=== PATIENT | male | born 1960 | race Hispanic/Latino ===

== ENCOUNTER 2017-08-04 08:19 | Inpatient (IN) | payer MEDICARE ==
[~2017-08-04] VITALS: Ht 162.6 cm; Wt 75.3 kg
[~2017-08-04 08:19] MED LIST: ALBU50IV5 IV; ASPI-1197 PO; ATOR40TA69 PO; BISA5TAB12 PO; CALC667T5 PO; CEPH500C2 PO; CINA30 PO; ENOX30DI5 SQ; EPOE10I IVP; FAMO20VI5 IV; FOLI1CAP24 PO; LACT10SO9 PO; METO25TA6 PO; MIDO5TAB PO; MIRALAX PO; ONDA4VIA30 IV; SIME80TA12 PO; [UNRECOGNIZED DRUG - CODE] IV
[2017-08-04 10:28] VITALS: BP 143/75
[2017-08-04] MEDS ORDERED: BISACODYL 5 MG TABLET.DR PO PRN (11:30)
[2017-08-04] MEDS ORDERED: ONDANSETRON HCL 4 MG/2 ML VIAL IVP PRN (11:30)
[2017-08-04] MEDS ORDERED: NITROGLYCERIN 0.4 MG SL TAB SL PRN (11:30)
[2017-08-04] MEDS ORDERED: POLYETHYLENE GLYCOL 3350 17 GM POWD.PACK PO PRN (11:30)
[2017-08-04] MEDS: MUPIROCIN OINTMENT 22 GM TUBE TP SCH ×2 (11:30→17:23)
[2017-08-04] MEDS: LACTULOSE 20 GM/30 ML UDCUP PO SCH ×2 (11:30→19:16)
[2017-08-04] MEDS ORDERED: DEXTROSE 50%-WATER 50 ML DISP.SYRIN IV PRN (11:30)
[2017-08-04] MEDS: INSULIN HUMULIN R 100 UNIT/ML 3ML SQ SCH ×3 (11:30→20:42)
[2017-08-04] MEDS ORDERED: GLUCAGON 1MG KIT 1 MG ML IM PRN (11:30)
[2017-08-04] MEDS: CEPHALEXIN 500 MG CAPSULE PO SCH ×2 (11:30→17:00)
[2017-08-04] MEDS ORDERED: SODIUM CHLORIDE 0.9% 1000ML 1,000 ML IV PRN (11:30)
[2017-08-04] MEDS ORDERED: ZOLPIDEM TARTRATE 5 MG TAB PO PRN (11:30)
[2017-08-04] MEDS ORDERED: ALBUMIN (HUMAN) 25% 50 ML IV PRN (11:30)
[2017-08-04] MEDS ORDERED: BALSAM PERU/CASTOR OIL 60 GM TUBE TP PRN (11:30)
[2017-08-04] MEDS ORDERED: GUAIFENESIN-CODEINE 5 ML SYRUP PO PRN (11:30)
[2017-08-04] MEDS ORDERED: PHARMACY COMMUNICATION MISC SCH ×2 (11:30)
[2017-08-04] MEDS: CALCIUM ACETATE 667 MG CAPSULE PO SCH ×2 (12:00→17:22)
[2017-08-04] MEDS ORDERED: IOPAMIDOL-370 100 ML VIAL IV ONE (12:46)
[2017-08-04] MEDS: SIMETHICONE 80 MG TAB.CHEW PO SCH ×3 (13:00→20:36)
[2017-08-04] MEDS ORDERED: CEFEPIME 1GM+NS 50ML 50 ML IV SCH (13:15)
[2017-08-04] MEDS ORDERED: VANCOMYCIN PROTOCOL PER PHARMACY IV SCH (13:15)
[2017-08-04] MEDS ORDERED: ISOVUE-370 50ML VIAL IV ONE (13:28)
[2017-08-04] MEDS: CEFEPIME HCL 1 GM VIAL IVP SCH ×2 (13:30→15:18)
[2017-08-04] MEDS ORDERED: MIDODRINE HCL 5 MG TABLET PO SCH (14:00)
[2017-08-04 15:46] LABS: CREATININE 6.9 mg/dL (0.5-1.5); POTASSIUM 5.7 mmol/L (3.5-5.1)
[2017-08-04 16:21] VITALS: BP 151/77
[2017-08-04] MEDS: ALBUTEROL SULFATE 0.083% 2.5 MG/3 ML INH IH SCH ×2 (16:27→19:38)
[2017-08-04] MEDS: ACETYLCYSTEINE 20% 200MG/ML 4ML VIAL IH SCH ×2 (16:27→19:39)
[2017-08-04] MEDS ORDERED: SODIUM POLYSTYRENE SULFONATE 15 GM/60 ML ML PO SCH (16:45)
[2017-08-04] MEDS ORDERED: DiphenhydrAMINE HCL 25 MG/10 ML ELIXIR UDCUP PO PRN (17:00)
[2017-08-04] MEDS: VANCOMYCIN 1GM+NS 250ML 250 ML IV SCH (17:25)
[2017-08-04 18:05] LABS: HEMATOCRIT 31.2 % (42-54); MEAN CORPUSCULAR HEMOGLOBIN 31.9 pg (27.0-33.0); MEAN CORPUSCULAR HGB CONC 31.3 g/dL (32.0-36.0); MEAN CORPUSCULAR VOLUME 101.7 fL (79-99); NUCLEATED RED BLOOD CELLS 0.1 % (0.0-0.19); PLATELET COUNT (AUTO) 202 K/uL (130-400); RED BLOOD CELL COUNT(AUTO) 3.07 MIL/uL (4.50-6.20); RED CELL DISTRIBUTION WIDTH 20.4 % (11.0-15.5); WHITE BLOOD COUNT (AUTO) 6.3 K/uL (4.8-10.8)
[2017-08-04] MEDS ORDERED: INSULIN HUMULIN R 100 UNIT/ML 3ML SQ ONE (20:27)
[2017-08-04 20:32] VITALS: BP 132/61
[2017-08-04] MEDS: ATORVASTATIN CALCIUM 40 MG TABLET PO SCH (20:35)
[2017-08-04] MEDS: FAMOTIDINE/PF 20 MG/2 ML VIAL IV SCH (20:35)
[2017-08-04] MEDS: RIFAXIMIN 550 MG TABLET PO SCH (20:36)
[2017-08-04] MEDS: CINACALCET HCL 30 MG TAB PO SCH (20:36)
[2017-08-04] MEDS ORDERED: ACETAMINOPHEN 325 MG TAB PO PRN (21:00)
[2017-08-04] MEDS ORDERED: METOPROLOL TARTRATE 25 MG TAB PO SCH (21:00)
[2017-08-04 23:41] VITALS: BP 103/61
[2017-08-05] MEDS: ENOXAPARIN SODIUM 40 MG/0.4 ML SYRINGE SQ SCH ×2 (00:20→20:19)
[2017-08-05] MEDS: MUPIROCIN OINTMENT 22 GM TUBE TP SCH ×3 (00:26→23:51)
[2017-08-05] MEDS: ACETYLCYSTEINE 20% 200MG/ML 4ML VIAL IH SCH ×5 (00:31→23:07)
[2017-08-05] MEDS: ALBUTEROL SULFATE 0.083% 2.5 MG/3 ML INH IH SCH ×5 (00:31→23:06)
[2017-08-05] MEDS: LACTULOSE 20 GM/30 ML UDCUP PO SCH ×6 (03:17→20:17)
[2017-08-05 03:31] VITALS: BP 126/71
[2017-08-05 03:50] LABS: HEMATOCRIT 29.5 % (42-54); MEAN CORPUSCULAR HEMOGLOBIN 31.3 pg (27.0-33.0); MEAN CORPUSCULAR HGB CONC 31.8 g/dL (32.0-36.0); MEAN CORPUSCULAR VOLUME 98.6 fL (79-99); PLATELET COUNT (AUTO) 203 K/uL (130-400); RED BLOOD CELL COUNT(AUTO) 2.99 MIL/uL (4.50-6.20); RED CELL DISTRIBUTION WIDTH 19.8 % (11.0-15.5); WHITE BLOOD COUNT (AUTO) 6.8 K/uL (4.8-10.8)
[2017-08-05 03:54] LABS: ALBUMIN 2.3 g/dL (3.5-5.0); BILIRUBIN,TOTAL 0.6 mg/dL (0.2-1.0); CREATININE 7.4 mg/dL (0.5-1.5); PHOSPHORUS 4.1 mg/dL (2.5-4.9); POTASSIUM 5.1 mmol/L (3.5-5.1); TOTAL PROTEIN, SERUM 7.8 g/dL (6.0-8.3)
[2017-08-05] MEDS: INSULIN HUMULIN R 100 UNIT/ML 3ML SQ SCH ×4 (05:33→20:54)
[2017-08-05 07:23] VITALS: BP 144/46
[2017-08-05] MEDS ORDERED: ISOVUE-370 50ML VIAL IV ONE (07:31)
[2017-08-05] MEDS: CALCIUM ACETATE 667 MG CAPSULE PO SCH ×4 (08:00→17:28)
[2017-08-05] MEDS: FOLIC ACID/VITAMIN B COMP W-C 1 MG CAPSULE PO SCH ×2 (09:00→09:17)
[2017-08-05] MEDS: ASPIRIN 81MG TAB.CHEW PO SCH ×2 (09:00→09:17)
[2017-08-05] MEDS: SIMETHICONE 80 MG TAB.CHEW PO SCH ×5 (09:17→20:18)
[2017-08-05] MEDS: RIFAXIMIN 550 MG TABLET PO SCH ×2 (09:17→20:18)
[2017-08-05 11:20] VITALS: BP 121/45
[2017-08-05] MEDS: CEFEPIME HCL 1 GM VIAL IVP SCH (14:31)
[2017-08-05 16:13] VITALS: BP 104/58
[2017-08-05 19:36] VITALS: BP_SYST 131; BP_SYST 144; BP_DIAS 83; BP_DIAS 92
[2017-08-05] MEDS: CINACALCET HCL 30 MG TAB PO SCH (20:18)
[2017-08-05] MEDS: ATORVASTATIN CALCIUM 40 MG TABLET PO SCH (20:18)
[2017-08-05] MEDS: FAMOTIDINE/PF 20 MG/2 ML VIAL IV SCH (20:18)
[2017-08-05 23:55] VITALS: BP 114/55
[2017-08-06] MEDS: LACTULOSE 20 GM/30 ML UDCUP PO SCH ×4 (03:30→21:02)
[2017-08-06 03:50] VITALS: BP 117/50
[2017-08-06 04:02] LABS: HEMATOCRIT 26.7 % (42-54); MEAN CORPUSCULAR HEMOGLOBIN 32.8 pg (27.0-33.0); MEAN CORPUSCULAR HGB CONC 33.3 g/dL (32.0-36.0); MEAN CORPUSCULAR VOLUME 98.7 fL (79-99); NUCLEATED RED BLOOD CELLS 0.1 % (0.0-0.19); PLATELET COUNT (AUTO) 167 K/uL (130-400); RED BLOOD CELL COUNT(AUTO) 2.71 MIL/uL (4.50-6.20); RED CELL DISTRIBUTION WIDTH 20.2 % (11.0-15.5); WHITE BLOOD COUNT (AUTO) 5.7 K/uL (4.8-10.8)
[2017-08-06 04:16] LABS: CREATININE 5.8 mg/dL (0.5-1.5); POTASSIUM 4.6 mmol/L (3.5-5.1)
[2017-08-06] MEDS: INSULIN HUMULIN R 100 UNIT/ML 3ML SQ SCH ×4 (05:29→21:00)
[2017-08-06] MEDS: ACETYLCYSTEINE 20% 200MG/ML 4ML VIAL IH SCH ×3 (07:28→18:00)
[2017-08-06] MEDS: ALBUTEROL SULFATE 0.083% 2.5 MG/3 ML INH IH SCH ×4 (07:29→23:45)
[2017-08-06 07:33] VITALS: BP 125/46
[2017-08-06] MEDS: SIMETHICONE 80 MG TAB.CHEW PO SCH ×4 (08:21→21:05)
[2017-08-06] MEDS: CALCIUM ACETATE 667 MG CAPSULE PO SCH ×3 (08:21→17:16)
[2017-08-06] MEDS: FOLIC ACID/VITAMIN B COMP W-C 1 MG CAPSULE PO SCH (08:21)
[2017-08-06] MEDS: ASPIRIN 81MG TAB.CHEW PO SCH (08:21)
[2017-08-06] MEDS: RIFAXIMIN 550 MG TABLET PO SCH ×2 (08:21→21:03)
[2017-08-06 10:21] LABS: INR 1.15 (0.85-1.15); PARTIAL THROMBOPLASTIN TIME 31.7 SEC (26.3-35.5)
[2017-08-06 11:09] VITALS: BP 135/88
[2017-08-06] MEDS: CEFEPIME HCL 1 GM VIAL IVP SCH (13:03)
[2017-08-06] MEDS: MUPIROCIN OINTMENT 22 GM TUBE TP SCH ×2 (13:05→23:00)
[2017-08-06 14:41] LABS: TOTAL PROTEIN, SERUM 7.5 g/dL (6.0-8.3)
[2017-08-06 16:00] VITALS: BP 144/65
[2017-08-06] MEDS: VANCOMYCIN 1GM+NS 250ML 250 ML IV SCH (17:16)
[2017-08-06 19:11] VITALS: BP 123/69
[2017-08-06 19:56] LABS: APPEARANCE BODY FLUID CLOUDY (CLEAR); COLOR,BODY FLUID YELLOW (LT YELLOW); SPECIMENTYPE,BODY FLUID PLEURAL; TOTAL VOLUME,BODY FLUID 1100 mL
[2017-08-06 19:57] LABS: BODY FLUID RBC 2600 /cu. mm.; BODY FLUID WBC 56 /cu. mm.
[2017-08-06 20:23] LABS: BF LYMPHOCYTE 29 %
[2017-08-06] MEDS: ENOXAPARIN SODIUM 40 MG/0.4 ML SYRINGE SQ SCH (21:03)
[2017-08-06] MEDS: FAMOTIDINE/PF 20 MG/2 ML VIAL IV SCH (21:03)
[2017-08-06] MEDS: ATORVASTATIN CALCIUM 40 MG TABLET PO SCH (21:03)
[2017-08-06] MEDS: CINACALCET HCL 30 MG TAB PO SCH (21:04)
[2017-08-06] MEDS: TRAZODONE HCL 50 MG TAB PO PRN (21:21)
[2017-08-06 23:20] VITALS: BP 117/69
[2017-08-07 03:04] VITALS: BP 127/58
[2017-08-07] MEDS: LACTULOSE 20 GM/30 ML UDCUP PO SCH ×4 (03:30→19:55)
[2017-08-07 04:21] LABS: CREATININE 7.1 mg/dL (0.5-1.5)
[2017-08-07 04:30] LABS: HEMATOCRIT 25.7 % (42-54); MEAN CORPUSCULAR HEMOGLOBIN 31.3 pg (27.0-33.0); MEAN CORPUSCULAR HGB CONC 31.6 g/dL (32.0-36.0); PLATELET COUNT (AUTO) 152 K/uL (130-400); RED CELL DISTRIBUTION WIDTH 20.1 % (11.0-15.5); WHITE BLOOD COUNT (AUTO) 5.4 K/uL (4.8-10.8)
[2017-08-07 05:30] LABS: BAND NEUTROPHILS % (MANUAL) 7 % (0-2); BASOPHILS % (MANUAL) 3 % (0-2); EOSINOPHILS % (MANUAL) 1 % (1-6); LYMPHOCYTES % (MANUAL) 12 % (22-44); MAN.DIFF COMMENT-IMPRESSION MANUAL DIFFERENTIAL; MONOCYTES % (MANUAL) 9 % (2-9); PLATELET MORPHOLOGY COMMENT ADEQUATE; SEGMENTED NEUTROPHILS % 68 % (40-70)
[2017-08-07] MEDS: ACETYLCYSTEINE 20% 200MG/ML 4ML VIAL IH SCH ×5 (06:00→23:22)
[2017-08-07] MEDS: INSULIN HUMULIN R 100 UNIT/ML 3ML SQ SCH ×4 (06:01→21:10)
[2017-08-07] MEDS: ALBUTEROL SULFATE 0.083% 2.5 MG/3 ML INH IH SCH ×4 (06:05→23:21)
[2017-08-07 07:23] VITALS: BP 118/42
[2017-08-07] MEDS: CALCIUM ACETATE 667 MG CAPSULE PO SCH ×3 (08:02→17:01)
[2017-08-07] MEDS: RIFAXIMIN 550 MG TABLET PO SCH ×2 (08:02→20:56)
[2017-08-07] MEDS: FOLIC ACID/VITAMIN B COMP W-C 1 MG CAPSULE PO SCH (08:02)
[2017-08-07] MEDS: ASPIRIN 81MG TAB.CHEW PO SCH (08:02)
[2017-08-07] MEDS: ACETAMINOPHEN 325 MG TAB PO PRN ×2 (08:03→22:36)
[2017-08-07] MEDS: SIMETHICONE 80 MG TAB.CHEW PO SCH ×4 (08:06→21:09)
[2017-08-07] MEDS ORDERED: TRAMADOL HCL 50 MG TABLET PO PRN (10:00)
[2017-08-07 11:10] VITALS: BP 122/45
[2017-08-07] MEDS: MUPIROCIN OINTMENT 22 GM TUBE TP SCH ×2 (11:30→23:03)
[2017-08-07] MEDS: CEFEPIME HCL 1 GM VIAL IVP SCH (13:25)
[2017-08-07 16:20] VITALS: BP 97/83
[2017-08-07 19:11] VITALS: BP 150/60
[2017-08-07] MEDS: FAMOTIDINE/PF 20 MG/2 ML VIAL IV SCH (20:55)
[2017-08-07] MEDS: CINACALCET HCL 30 MG TAB PO SCH (20:56)
[2017-08-07] MEDS: ATORVASTATIN CALCIUM 40 MG TABLET PO SCH (20:56)
[2017-08-07] MEDS: ENOXAPARIN SODIUM 30 MG/0.3 ML SQ SCH (20:59)
[2017-08-07] MEDS: TRAZODONE HCL 50 MG TAB PO PRN (22:36)
[2017-08-07] MEDS ORDERED: ACETYLCYSTEINE 20% 200MG/ML 4ML VIAL ONE (23:03)
[2017-08-07 23:08] VITALS: BP 109/49
[2017-08-08 03:06] VITALS: BP 129/49
[2017-08-08] MEDS: LACTULOSE 20 GM/30 ML UDCUP PO SCH ×4 (03:30→19:30)
[2017-08-08 04:13] LABS: HEMATOCRIT 27.3 % (42-54); MEAN CORPUSCULAR HEMOGLOBIN 32.2 pg (27.0-33.0); MEAN CORPUSCULAR HGB CONC 32.8 g/dL (32.0-36.0); MEAN CORPUSCULAR VOLUME 98.3 fL (79-99); NUCLEATED RED BLOOD CELLS 0.1 % (0.0-0.19); PLATELET COUNT (AUTO) 151 K/uL (130-400); RED BLOOD CELL COUNT(AUTO) 2.78 MIL/uL (4.50-6.20); WHITE BLOOD COUNT (AUTO) 5.6 K/uL (4.8-10.8)
[2017-08-08 04:16] LABS: POTASSIUM 5.5 mmol/L (3.5-5.1)
[2017-08-08 04:42] LABS: CREATININE 8.3 mg/dL (0.5-1.5)
[2017-08-08] MEDS: INSULIN HUMULIN R 100 UNIT/ML 3ML SQ SCH ×4 (05:56→21:06)
[2017-08-08] MEDS: ALBUTEROL SULFATE 0.083% 2.5 MG/3 ML INH IH SCH ×3 (06:01→18:50)
[2017-08-08] MEDS: ACETYLCYSTEINE 20% 200MG/ML 4ML VIAL IH SCH ×2 (06:01→18:49)
[2017-08-08 07:00] VITALS: BP 144/50
[2017-08-08 11:00] VITALS: BP 116/71
[2017-08-08] MEDS: MUPIROCIN OINTMENT 22 GM TUBE TP SCH ×2 (11:30→23:30)
[2017-08-08] MEDS: CALCIUM ACETATE 667 MG CAPSULE PO SCH ×3 (12:00→17:57)
[2017-08-08] MEDS: SIMETHICONE 80 MG TAB.CHEW PO SCH ×4 (13:00→20:56)
[2017-08-08] MEDS: FOLIC ACID/VITAMIN B COMP W-C 1 MG CAPSULE PO SCH (13:08)
[2017-08-08] MEDS: RIFAXIMIN 550 MG TABLET PO SCH ×2 (13:12→20:56)
[2017-08-08] MEDS: ASPIRIN 81MG TAB.CHEW PO SCH (13:12)
[2017-08-08] MEDS: CEFEPIME HCL 1 GM VIAL IVP SCH (13:14)
[2017-08-08 16:00] VITALS: BP 131/97
[2017-08-08] MEDS ORDERED: SODIUM POLYSTYRENE SULFONATE 15 GM/60 ML ML PO SCH (16:30)
[2017-08-08] MEDS: VANCOMYCIN 1GM+NS 250ML 250 ML IV SCH (17:00)
[2017-08-08 19:28] VITALS: BP_SYST 129; BP_SYST 141; BP_DIAS 69; BP_DIAS 76
[2017-08-08] MEDS: FAMOTIDINE/PF 20 MG/2 ML VIAL IV SCH (20:55)
[2017-08-08] MEDS: ATORVASTATIN CALCIUM 40 MG TABLET PO SCH (20:56)
[2017-08-08] MEDS: ENOXAPARIN SODIUM 30 MG/0.3 ML SQ SCH (20:56)
[2017-08-08] MEDS: CINACALCET HCL 30 MG TAB PO SCH (20:57)
[2017-08-08 23:20] VITALS: BP 146/58
[2017-08-09] MEDS: ALBUTEROL SULFATE 0.083% 2.5 MG/3 ML INH IH SCH ×3 (00:59→10:57)
[2017-08-09] MEDS: ACETYLCYSTEINE 20% 200MG/ML 4ML VIAL IH SCH ×3 (01:00→10:57)
[2017-08-09] MEDS: LACTULOSE 20 GM/30 ML UDCUP PO SCH (03:17)
[2017-08-09 03:35] VITALS: BP 126/55
[2017-08-09 07:00] VITALS: BP 140/111
[2017-08-09] MEDS: INSULIN HUMULIN R 100 UNIT/ML 3ML SQ SCH (07:30)
[2017-08-09] MEDS: CALCIUM ACETATE 667 MG CAPSULE PO SCH (08:17)
[2017-08-09] MEDS ORDERED: TRAM50TA2 PO (09:40)
[2017-08-09] MEDS ORDERED: LACT10SO9 PO (09:41)
[2017-08-09] MEDS ORDERED: ASPI-1005 PO (09:45)
[2017-08-09] MEDS ORDERED: RIFA550T PO (09:45)
[2017-08-09] MEDS ORDERED: ATOR40TA69 PO (09:45)
[2017-08-09 11:00] VITALS: BP 160/77
[2017-08-09 16:00] VITALS: BP 162/60
== END 2017-08-09 18:15 | disposition home health service (06) | DRG 862 ==
LOC: 2AH 10:10
PROVIDERS: ADMIT Internal Medicine; ATTEND Internal Medicine
PROC: 5A1D70Z Performance of Urinary Filtration, Intermittent, Less than 6 Hours Per Day (ICD-10-PCS; 2017-08-05)
PROC: 0W993ZZ Drainage of Right Pleural Cavity, Percutaneous Approach (ICD-10-PCS; principal; 2017-08-06)
PROC: 5A1D70Z Performance of Urinary Filtration, Intermittent, Less than 6 Hours Per Day (ICD-10-PCS; 2017-08-08)
DX: T81.4XXA Infection following a procedure, initial encounter (principal); J98.51 Mediastinitis; G93.40 Encephalopathy, unspecified; I13.2 Hypertensive heart and chronic kidney disease with heart failure and with stage 5 chronic kidney disease, or end stage renal disease; J96.10 Chronic respiratory failure, unspecified whether with hypoxia or hypercapnia; J90 Pleural effusion, not elsewhere classified; N18.6 End stage renal disease; T81.31XA Disruption of external operation (surgical) wound, not elsewhere classified, initial encounter; L03.116 Cellulitis of left lower limb; I12.0 Hypertensive chronic kidney disease with stage 5 chronic kidney disease or end stage renal disease; I27.20 Pulmonary hypertension, unspecified; E11.22 Type 2 diabetes mellitus with diabetic chronic kidney disease; E87.5 Hyperkalemia; I50.9 Heart failure, unspecified; B96.5 Pseudomonas (aeruginosa) (mallei) (pseudomallei) as the cause of diseases classified elsewhere; E11.51 Type 2 diabetes mellitus with diabetic peripheral angiopathy without gangrene; G47.00 Insomnia, unspecified; I25.10 Atherosclerotic heart disease of native coronary artery without angina pectoris; D63.8 Anemia in other chronic diseases classified elsewhere; E78.5 Hyperlipidemia, unspecified; Z99.2 Dependence on renal dialysis; Z99.81 Dependence on supplemental oxygen; Z95.1 Presence of aortocoronary bypass graft; I25.2 Old myocardial infarction; Z91.19 Patient's noncompliance with other medical treatment and regimen; Z79.2 Long term (current) use of antibiotics; Z79.82 Long term (current) use of aspirin; Z79.899 Other long term (current) drug therapy; Z98.61 Coronary angioplasty status
CPT/HCPCS: 36415; 71045; 71270; 72193; 73701; 80048; 80053; 80202; 82945; 82948; 83615; 83986; 84100; 84155; 84157; 85025; 85027; 85610; 85730; 87070; 87071; 87076; 87101; 87116; 87205; 87206; 89051; 90935; 94640; 94664; 94760; A4218; C1729; J0692; J1650; J1815; J3370; J3490; J7030; J7608; Q9967

== ENCOUNTER 2017-09-05 22:24 | Inpatient (IN) | payer MEDICARE ==
[~2017-09-05] VITALS: Ht 165.1 cm; Wt 76.0 kg
[~2017-09-05 22:24] MED LIST changes: +ASPI-1005 PO; +RIFA550T PO; +TRAM50TA2 PO
[2017-09-05] MEDS ORDERED: ASPIRIN 325 MG TABLET ONE (22:40)
[2017-09-05] MEDS ORDERED: IPRATROPIUM/ALBUTEROL SULFATE 3 ML SOLUTION IH ONE (22:45)
[2017-09-05 22:49] LABS: BASOPHILS % (AUTO) 2.3 % (0.0-5.0); EOSINOPHILS % (AUTO) 2.6 % (0.0-8.0); HEMATOCRIT 34.7 % (42-54); LYMPHOCYTES % (AUTO) 13.6 % (21.0-51.0); MEAN CORPUSCULAR HEMOGLOBIN 31.9 pg (27.0-33.0); MEAN CORPUSCULAR HGB CONC 31.7 g/dL (32.0-36.0); MEAN CORPUSCULAR VOLUME 100.9 fL (79-99); MONOCYTES % (AUTO) 12.6 % (3.0-13.0); NEUTROPHILS % (AUTO) 68.9 % (40.0-77.0); NUCLEATED RED BLOOD CELLS 0.3 % (0.0-0.19); PLATELET COUNT (AUTO) 161 K/uL (130-400); RED BLOOD CELL COUNT(AUTO) 3.44 MIL/uL (4.50-6.20); RED CELL DISTRIBUTION WIDTH 18.3 % (11.0-15.5); WHITE BLOOD COUNT (AUTO) 9.9 K/uL (4.8-10.8)
[2017-09-05 22:57] LABS: ABG HCO3 28.8 mmol/L (21.0-28.0); ABG PCO2 88 mmHg (35-48)
[2017-09-05 23:02] LABS: CREATININE 6.2 mg/dL (0.5-1.5); POTASSIUM 5.2 mmol/L (3.5-5.1)
[2017-09-05 23:05] LABS: INR 1.18 (0.85-1.15); PARTIAL THROMBOPLASTIN TIME 30.9 SEC (26.3-35.5); PROTHROMBIN TIME 12.3 SEC (9.6-11.6)
[2017-09-05 23:08] LABS: B-TYPE NATRIURETIC PEPTIDE 2150 pg/mL (0-100)
[2017-09-05 23:30] LABS: ALBUMIN 2.3 g/dL (3.5-5.0); BILIRUBIN,TOTAL 0.6 mg/dL (0.2-1.0); CREATINE KINASE MB 7.8 ng/mL (0.5-3.6); TOTAL PROTEIN, SERUM 8.2 g/dL (6.0-8.3)
[2017-09-06 00:34] LABS: ABG BASE EXCESS -0.7 mmol/L (-2.0-3.0); ABG HCO3 29.8 mmol/L (21.0-28.0); ABG OXYGEN SATURATION 88.5 % (95.0-99.0); ABG PCO2 78 mmHg (35-48)
[2017-09-06 02:58] VITALS: BP 105/58
[2017-09-06] MEDS ORDERED: DEXTROSE 50%-WATER 50 ML DISP.SYRIN IV PRN (03:15)
[2017-09-06] MEDS ORDERED: GLUCAGON 1MG KIT 1 MG ML IM PRN (03:15)
[2017-09-06] MEDS: INSULIN R PO SS1 SQ SCH ×4 (06:06→21:40)
[2017-09-06] MEDS ORDERED: LEVO500T89 PO (07:13)
[2017-09-06] MEDS ORDERED: DIPH25 PO (07:13)
[2017-09-06 07:34] VITALS: BP 105/54
[2017-09-06] MEDS ORDERED: TRAMADOL HCL 50 MG TABLET PO PRN (09:15)
[2017-09-06] MEDS ORDERED: EPOETIN ALFA 10,000 UNIT/ML VIAL SQ SCH (09:15)
[2017-09-06] MEDS ORDERED: ONDANSETRON HCL 4 MG/2 ML VIAL IV PRN (09:15)
[2017-09-06 11:13] VITALS: BP 85/53
[2017-09-06] MEDS ORDERED: ALBUMIN (HUMAN) 25% 200 ML IV ONE (11:17)
[2017-09-06] MEDS: SIMETHICONE 80 MG TAB.CHEW PO SCH ×2 (12:54→18:17)
[2017-09-06] MEDS: MIDODRINE HCL 5 MG TABLET PO SCH ×2 (13:02→19:52)
[2017-09-06] MEDS ORDERED: MIDODRINE HCL 5 MG TABLET PO SCH (14:00)
[2017-09-06] MEDS: EPOETIN ALFA 3,000 UNIT/ML ML SQ SCH (15:55)
[2017-09-06 16:26] VITALS: BP 95/54
[2017-09-06 19:36] VITALS: BP 102/58
[2017-09-06] MEDS: LACTULOSE 20 GM/30 ML UDCUP PO SCH (19:52)
[2017-09-06] MEDS: ATORVASTATIN CALCIUM 40 MG TABLET PO SCH (19:52)
[2017-09-06] MEDS: CINACALCET HCL 30 MG TAB PO SCH (19:53)
[2017-09-06] MEDS: RIFAXIMIN 550 MG TABLET PO SCH (19:53)
[2017-09-06 23:39] VITALS: BP 113/64
[2017-09-07 03:42] VITALS: BP 106/57
[2017-09-07 04:32] LABS: HEMATOCRIT 31.7 % (42-54); MEAN CORPUSCULAR HEMOGLOBIN 31.7 pg (27.0-33.0); MEAN CORPUSCULAR HGB CONC 32.1 g/dL (32.0-36.0); MEAN CORPUSCULAR VOLUME 98.8 fL (79-99); NUCLEATED RED BLOOD CELLS 0.1 % (0.0-0.19); PLATELET COUNT (AUTO) 121 K/uL (130-400); RED BLOOD CELL COUNT(AUTO) 3.21 MIL/uL (4.50-6.20); RED CELL DISTRIBUTION WIDTH 17.9 % (11.0-15.5); WHITE BLOOD COUNT (AUTO) 6.8 K/uL (4.8-10.8)
[2017-09-07 04:34] LABS: ABG BASE EXCESS -0.4 mmol/L (-2.0-3.0); ABG HCO3 29.2 mmol/L (21.0-28.0); ABG OXYGEN SATURATION 96.3 % (95.0-99.0); ABG PCO2 71 mmHg (35-48)
[2017-09-07 04:43] LABS: ALBUMIN 2.6 g/dL (3.5-5.0); PHOSPHORUS 6.6 mg/dL (2.5-4.9); TOTAL PROTEIN, SERUM 7.4 g/dL (6.0-8.3)
[2017-09-07 04:47] LABS: BAND NEUTROPHILS % (MANUAL) 5 % (0-2); EOSINOPHILS % (MANUAL) 1 % (1-6); LYMPHOCYTES % (MANUAL) 15 % (22-44); MONOCYTES % (MANUAL) 5 % (2-9); SEGMENTED NEUTROPHILS % 74 % (40-70)
[2017-09-07 04:48] LABS: MAN.DIFF COMMENT-IMPRESSION MANUAL DIFFERENTIAL; PLATELET MORPHOLOGY COMMENT SLIGHTLY DECREASED
[2017-09-07 04:57] LABS: BILIRUBIN,TOTAL 0.7 mg/dL (0.2-1.0)
[2017-09-07] MEDS: INSULIN R PO SS1 SQ SCH ×4 (05:59→22:00)
[2017-09-07 07:25] VITALS: BP 110/60
[2017-09-07] MEDS: ASPIRIN 81MG TAB.CHEW PO SCH (09:48)
[2017-09-07] MEDS: RIFAXIMIN 550 MG TABLET PO SCH ×2 (09:48→20:03)
[2017-09-07] MEDS: LACTULOSE 20 GM/30 ML UDCUP PO SCH ×2 (09:48→20:03)
[2017-09-07] MEDS: FOLIC ACID/VITAMIN B COMP W-C 1 MG CAPSULE PO SCH (09:48)
[2017-09-07] MEDS: MIDODRINE HCL 5 MG TABLET PO SCH ×3 (09:48→21:00)
[2017-09-07] MEDS: SIMETHICONE 80 MG TAB.CHEW PO SCH ×3 (09:49→17:26)
[2017-09-07] MEDS: ENOXAPARIN SODIUM 30 MG/0.3 ML SQ SCH (09:49)
[2017-09-07] MEDS ORDERED: IOPAMIDOL-370 100 ML VIAL IV ONE (11:14)
[2017-09-07 11:50] VITALS: BP 114/53
[2017-09-07 16:20] VITALS: BP 122/57
[2017-09-07 19:40] VITALS: BP 117/66
[2017-09-07] MEDS: CINACALCET HCL 30 MG TAB PO SCH (20:03)
[2017-09-07] MEDS: ATORVASTATIN CALCIUM 40 MG TABLET PO SCH (20:03)
[2017-09-08 00:18] VITALS: BP 145/83
[2017-09-08 03:46] VITALS: BP 116/64
[2017-09-08 04:26] LABS: BASOPHILS % (AUTO) 0.9 % (0.0-5.0); EOSINOPHILS % (AUTO) 4.6 % (0.0-8.0); HEMATOCRIT 34.9 % (42-54); LYMPHOCYTES % (AUTO) 10.8 % (21.0-51.0); MEAN CORPUSCULAR HEMOGLOBIN 30.6 pg (27.0-33.0); MEAN CORPUSCULAR HGB CONC 31.2 g/dL (32.0-36.0); MEAN CORPUSCULAR VOLUME 98.1 fL (79-99); NEUTROPHILS % (AUTO) 72.7 % (40.0-77.0); NUCLEATED RED BLOOD CELLS 0.1 % (0.0-0.19); PLATELET COUNT (AUTO) 135 K/uL (130-400); RED BLOOD CELL COUNT(AUTO) 3.56 MIL/uL (4.50-6.20); RED CELL DISTRIBUTION WIDTH 17.8 % (11.0-15.5); WHITE BLOOD COUNT (AUTO) 8.2 K/uL (4.8-10.8)
[2017-09-08 04:41] LABS: INR 1.18 (0.85-1.15); PROTHROMBIN TIME 12.4 SEC (9.6-11.6)
[2017-09-08 05:03] LABS: ALBUMIN 2.7 g/dL (3.5-5.0); BILIRUBIN,TOTAL 0.7 mg/dL (0.2-1.0); CREATININE 6.7 mg/dL (0.5-1.5); MAGNESIUM 2.8 mg/dL (1.80-2.40); PHOSPHORUS 7.5 mg/dL (2.5-4.9); POTASSIUM 5.2 mmol/L (3.5-5.1)
[2017-09-08] MEDS: INSULIN R PO SS1 SQ SCH ×4 (05:57→21:00)
[2017-09-08 07:16] VITALS: BP 121/62
[2017-09-08] MEDS: ENOXAPARIN SODIUM 30 MG/0.3 ML SQ SCH (09:00)
[2017-09-08 09:19] LABS: ABG BASE EXCESS -2.1 mmol/L (-2.0-3.0); ABG OXYGEN SATURATION 92.1 % (95.0-99.0); ABG PCO2 70 mmHg (35-48)
[2017-09-08] MEDS: ASPIRIN 81MG TAB.CHEW PO SCH (09:50)
[2017-09-08] MEDS: FOLIC ACID/VITAMIN B COMP W-C 1 MG CAPSULE PO SCH (09:50)
[2017-09-08] MEDS: RIFAXIMIN 550 MG TABLET PO SCH ×2 (09:50→20:20)
[2017-09-08] MEDS: MIDODRINE HCL 5 MG TABLET PO SCH ×3 (09:50→20:28)
[2017-09-08] MEDS: SIMETHICONE 80 MG TAB.CHEW PO SCH ×3 (09:50→17:40)
[2017-09-08] MEDS: LACTULOSE 20 GM/30 ML UDCUP PO SCH ×2 (09:50→20:19)
[2017-09-08 11:55] VITALS: BP 110/60
[2017-09-08] MEDS ORDERED: ALBUMIN (HUMAN) 25% 100 ML IV PRN (12:00)
[2017-09-08] MEDS ORDERED: 0.9% SODIUM CHLORIDE 250 ML IV BAG IV PRN (12:00)
[2017-09-08] MEDS ORDERED: SODIUM CHLORIDE 0.9% 1000ML 1,000 ML IV PRN (12:00)
[2017-09-08 13:58] LABS: APPEARANCE BODY FLUID SLIGHTLY CLOUDY (CLEAR); COLOR,BODY FLUID YELLOW (LT YELLOW); SPECIMENTYPE,BODY FLUID PLEURAL; TOTAL VOLUME,BODY FLUID 1400 mL
[2017-09-08 13:59] LABS: BODY FLUID RBC 2215 /cu. mm.; BODY FLUID WBC 23 /cu. mm.
[2017-09-08 14:03] LABS: BF EOSINOPHIL 1 %; BF LYMPHOCYTE 19 %; BF MESOTHELIAL 40 %; BF MONOCYTE 15 %
[2017-09-08 16:35] VITALS: BP 116/64
[2017-09-08 19:29] VITALS: BP 117/61
[2017-09-08] MEDS: ATORVASTATIN CALCIUM 40 MG TABLET PO SCH (20:20)
[2017-09-08] MEDS: CINACALCET HCL 30 MG TAB PO SCH (20:20)
[2017-09-09] VITALS (7 sets, daily range): BP systolic 105–123; BP diastolic 55–65
[2017-09-09 04:36] LABS: HEMATOCRIT 33.3 % (42-54); MEAN CORPUSCULAR HEMOGLOBIN 32.3 pg (27.0-33.0); MEAN CORPUSCULAR HGB CONC 32.9 g/dL (32.0-36.0); MEAN CORPUSCULAR VOLUME 98.1 fL (79-99); NUCLEATED RED BLOOD CELLS 0.2 % (0.0-0.19); PLATELET COUNT (AUTO) 100 K/uL (130-400); RED CELL DISTRIBUTION WIDTH 17.8 % (11.0-15.5); WHITE BLOOD COUNT (AUTO) 7.4 K/uL (4.8-10.8)
[2017-09-09 04:41] LABS: POTASSIUM 4.6 mmol/L (3.5-5.1)
[2017-09-09] MEDS: INSULIN R PO SS1 SQ SCH ×4 (05:56→22:21)
[2017-09-09] MEDS: FOLIC ACID/VITAMIN B COMP W-C 1 MG CAPSULE PO SCH (10:04)
[2017-09-09] MEDS: ENOXAPARIN SODIUM 30 MG/0.3 ML SQ SCH (10:05)
[2017-09-09] MEDS: RIFAXIMIN 550 MG TABLET PO SCH ×2 (10:05→20:14)
[2017-09-09] MEDS: ASPIRIN 81MG TAB.CHEW PO SCH (10:05)
[2017-09-09] MEDS: MIDODRINE HCL 5 MG TABLET PO SCH ×3 (10:05→20:14)
[2017-09-09] MEDS: LACTULOSE 20 GM/30 ML UDCUP PO SCH ×2 (10:06→20:14)
[2017-09-09] MEDS: EPOETIN ALFA 3,000 UNIT/ML ML SQ SCH (10:10)
[2017-09-09] MEDS: SIMETHICONE 80 MG TAB.CHEW PO SCH ×3 (10:10→17:33)
[2017-09-09] MEDS: CINACALCET HCL 30 MG TAB PO SCH (20:14)
[2017-09-09] MEDS: ATORVASTATIN CALCIUM 40 MG TABLET PO SCH (20:14)
[2017-09-10 03:55] VITALS: BP 114/60
[2017-09-10 05:12] LABS: HEMATOCRIT 37.3 % (42-54); MEAN CORPUSCULAR HEMOGLOBIN 30.8 pg (27.0-33.0); MEAN CORPUSCULAR VOLUME 99.3 fL (79-99); NUCLEATED RED BLOOD CELLS 0.2 % (0.0-0.19); PLATELET COUNT (AUTO) 120 K/uL (130-400); RED BLOOD CELL COUNT(AUTO) 3.76 MIL/uL (4.50-6.20); WHITE BLOOD COUNT (AUTO) 9.7 K/uL (4.8-10.8)
[2017-09-10 05:29] LABS: CREATININE 6.4 mg/dL (0.5-1.5); POTASSIUM 4.6 mmol/L (3.5-5.1)
[2017-09-10] MEDS: INSULIN R PO SS1 SQ SCH ×3 (07:30→17:14)
[2017-09-10 07:32] VITALS: BP 107/65
[2017-09-10] MEDS: ASPIRIN 81MG TAB.CHEW PO SCH (10:07)
[2017-09-10] MEDS: RIFAXIMIN 550 MG TABLET PO SCH (10:07)
[2017-09-10] MEDS: SIMETHICONE 80 MG TAB.CHEW PO SCH ×3 (10:07→17:14)
[2017-09-10] MEDS: LACTULOSE 20 GM/30 ML UDCUP PO SCH (10:07)
[2017-09-10] MEDS: MIDODRINE HCL 5 MG TABLET PO SCH ×2 (10:07→14:54)
[2017-09-10] MEDS: ENOXAPARIN SODIUM 30 MG/0.3 ML SQ SCH (10:07)
[2017-09-10] MEDS: FOLIC ACID/VITAMIN B COMP W-C 1 MG CAPSULE PO SCH (10:07)
[2017-09-10 11:36] VITALS: BP 118/64
[2017-09-10 16:23] VITALS: BP 123/65
== END 2017-09-10 19:58 | disposition home health service (06) | DRG 189 ==
LOC: EDH 22:24 → EDHIP 09-06 01:20 → OBSVTOIN 09-06 01:20 → 2DH 09-06 02:20
PROVIDERS: ADMIT Internal Medicine Nephrology; ATTEND Internal Medicine Nephrology
PROC: 0W993ZZ Drainage of Right Pleural Cavity, Percutaneous Approach (ICD-10-PCS; principal; 2017-09-06)
PROC: 5A1D70Z Performance of Urinary Filtration, Intermittent, Less than 6 Hours Per Day (ICD-10-PCS; 2017-09-06)
PROC: 5A1D70Z Performance of Urinary Filtration, Intermittent, Less than 6 Hours Per Day (ICD-10-PCS; 2017-09-06)
PROC: 5A09457 Assistance with Respiratory Ventilation, 24-96 Consecutive Hours, Continuous Positive Airway Pressure (ICD-10-PCS; 2017-09-06)
PROC: 5A09357 Assistance with Respiratory Ventilation, Less than 24 Consecutive Hours, Continuous Positive Airway Pressure (ICD-10-PCS; 2017-09-06)
DX: J96.01 Acute respiratory failure with hypoxia (principal); I13.2 Hypertensive heart and chronic kidney disease with heart failure and with stage 5 chronic kidney disease, or end stage renal disease; J81.0 Acute pulmonary edema; E87.2 Acidosis; I95.89 Other hypotension; E11.22 Type 2 diabetes mellitus with diabetic chronic kidney disease; E11.51 Type 2 diabetes mellitus with diabetic peripheral angiopathy without gangrene; N18.6 End stage renal disease; D63.1 Anemia in chronic kidney disease; G47.30 Sleep apnea, unspecified; I25.10 Atherosclerotic heart disease of native coronary artery without angina pectoris; I25.5 Ischemic cardiomyopathy; I50.9 Heart failure, unspecified; K74.60 Unspecified cirrhosis of liver; Z82.49 Family history of ischemic heart disease and other diseases of the circulatory system; Z83.3 Family history of diabetes mellitus; Z95.1 Presence of aortocoronary bypass graft; Z99.2 Dependence on renal dialysis
CPT/HCPCS: 36415; 36600; 71045; 71275; 80048; 80053; 82330; 82435; 82550; 82553; 82803; 82945; 82947; 82948; 83605; 83615; 83735; 83874; 83880; 83986; 84100; 84132; 84157; 84295; 84484; 85018; 85025; 85027; 85610; 85730; 87040; 87071; 87103; 87116; 87205; 87206; 87804; 88108; 89051; 90935; 93005; 93970; 94640; 94660; 99291; C1729; J0885; J1650; J1815; J7030; J7070; P9046; Q9967

== ENCOUNTER → 2018-04-10 | Outpatient (CLI) | payer MEDICARE ==
[~2018-04-10] MED LIST changes: -ASPI-1197 PO; +DIPH25 PO; +LEVO500T89 PO; +ONDA4VIA22 IV; -ONDA4VIA30 IV
== END | disposition home or self-care (01) ==
LOC: RAH 14:29
PROVIDERS: ATTEND Podiatrist
DX: E11.52 Type 2 diabetes mellitus with diabetic peripheral angiopathy with gangrene (principal); I96 Gangrene, not elsewhere classified; E11.621 Type 2 diabetes mellitus with foot ulcer; I13.2 Hypertensive heart and chronic kidney disease with heart failure and with stage 5 chronic kidney disease, or end stage renal disease; E11.22 Type 2 diabetes mellitus with diabetic chronic kidney disease; N18.6 End stage renal disease; I50.9 Heart failure, unspecified; E78.00 Pure hypercholesterolemia, unspecified; I25.10 Atherosclerotic heart disease of native coronary artery without angina pectoris
CPT/HCPCS: 93922

== ENCOUNTER → 2018-04-19 | Outpatient (CLI) | payer MEDICARE ==
[2018-04-19 16:27] VITALS: BP 167/78
== END | disposition home or self-care (01) ==
LOC: WHH 14:00
PROVIDERS: ATTEND Family Medicine
DX: E11.621 Type 2 diabetes mellitus with foot ulcer (principal); L97.511 Non-pressure chronic ulcer of other part of right foot limited to breakdown of skin; L97.411 Non-pressure chronic ulcer of right heel and midfoot limited to breakdown of skin; I25.10 Atherosclerotic heart disease of native coronary artery without angina pectoris; E78.00 Pure hypercholesterolemia, unspecified; E11.52 Type 2 diabetes mellitus with diabetic peripheral angiopathy with gangrene; I96 Gangrene, not elsewhere classified; E11.22 Type 2 diabetes mellitus with diabetic chronic kidney disease; I13.2 Hypertensive heart and chronic kidney disease with heart failure and with stage 5 chronic kidney disease, or end stage renal disease; N18.6 End stage renal disease; I50.9 Heart failure, unspecified
CPT/HCPCS: 11042; A4450; G0463

== ENCOUNTER → 2018-04-26 | Outpatient (CLI) | payer MEDICARE ==
[~2018-04-26] MED LIST changes: +LIDOCAINE/PRILOCAINE CREAM 5GM TUBE TP ONE
[2018-04-26 16:00] VITALS: BP 174/69
== END | disposition home or self-care (01) ==
LOC: WHH 14:45
PROVIDERS: ATTEND Family Medicine
DX: E11.621 Type 2 diabetes mellitus with foot ulcer (principal); L97.511 Non-pressure chronic ulcer of other part of right foot limited to breakdown of skin; L97.411 Non-pressure chronic ulcer of right heel and midfoot limited to breakdown of skin; I25.10 Atherosclerotic heart disease of native coronary artery without angina pectoris; E78.00 Pure hypercholesterolemia, unspecified; E11.52 Type 2 diabetes mellitus with diabetic peripheral angiopathy with gangrene; I96 Gangrene, not elsewhere classified; E11.22 Type 2 diabetes mellitus with diabetic chronic kidney disease; I13.2 Hypertensive heart and chronic kidney disease with heart failure and with stage 5 chronic kidney disease, or end stage renal disease; N18.6 End stage renal disease; I50.9 Heart failure, unspecified
CPT/HCPCS: 11042; J3490

== ENCOUNTER → 2018-05-03 | Outpatient (CLI) | payer MEDICARE ==
[~2018-05-03] MED LIST changes: -LIDOCAINE/PRILOCAINE CREAM 5GM TUBE TP ONE
[2018-05-03 15:32] VITALS: BP 171/86
== END | disposition home or self-care (01) ==
LOC: WHH 14:00
PROVIDERS: ATTEND Family Medicine
DX: E11.621 Type 2 diabetes mellitus with foot ulcer (principal); L97.511 Non-pressure chronic ulcer of other part of right foot limited to breakdown of skin; L97.411 Non-pressure chronic ulcer of right heel and midfoot limited to breakdown of skin; I25.10 Atherosclerotic heart disease of native coronary artery without angina pectoris; E78.00 Pure hypercholesterolemia, unspecified; E11.52 Type 2 diabetes mellitus with diabetic peripheral angiopathy with gangrene; I96 Gangrene, not elsewhere classified; E11.22 Type 2 diabetes mellitus with diabetic chronic kidney disease; I13.2 Hypertensive heart and chronic kidney disease with heart failure and with stage 5 chronic kidney disease, or end stage renal disease; N18.6 End stage renal disease; I50.9 Heart failure, unspecified; E11.40 Type 2 diabetes mellitus with diabetic neuropathy, unspecified; R62.7 Adult failure to thrive; J96.20 Acute and chronic respiratory failure, unspecified whether with hypoxia or hypercapnia; J90 Pleural effusion, not elsewhere classified; Z99.2 Dependence on renal dialysis
CPT/HCPCS: 11042

== ENCOUNTER → 2018-05-03 | Outpatient (CLI) | payer MEDICARE ==
[~2018-05-03] MED LIST changes: +IOPAMIDOL-370 100 ML VIAL IV ONE; +ISOVUE-370 50ML VIAL IV ONE
== END | disposition home or self-care (01) ==
LOC: RAH 08:38
PROVIDERS: ATTEND Internal Medicine Cardiovascular Disease
DX: R91.8 Other nonspecific abnormal finding of lung field (principal); I70.1 Atherosclerosis of renal artery; K80.20 Calculus of gallbladder without cholecystitis without obstruction; N32.89 Other specified disorders of bladder; M47.895 Other spondylosis, thoracolumbar region; I51.7 Cardiomegaly; J90 Pleural effusion, not elsewhere classified; E11.621 Type 2 diabetes mellitus with foot ulcer; L97.509 Non-pressure chronic ulcer of other part of unspecified foot with unspecified severity; I25.10 Atherosclerotic heart disease of native coronary artery without angina pectoris
CPT/HCPCS: 71046; 75635; Q9967 ×2

== ENCOUNTER → 2018-05-10 | Outpatient (CLI) | payer MEDICARE ==
[~2018-05-10] MED LIST changes: -IOPAMIDOL-370 100 ML VIAL IV ONE; -ISOVUE-370 50ML VIAL IV ONE; +LIDOCAINE HCL 4% LTA SOL 4 ML VIAL TP ONE; +LIDOCAINE/PRILOCAINE CREAM 5GM TUBE TP ONE
[2018-05-10 16:03] VITALS: BP 173/85
== END | disposition home or self-care (01) ==
LOC: WHH 14:30
PROVIDERS: ATTEND Family Medicine
DX: E11.621 Type 2 diabetes mellitus with foot ulcer (principal); L97.511 Non-pressure chronic ulcer of other part of right foot limited to breakdown of skin; L97.411 Non-pressure chronic ulcer of right heel and midfoot limited to breakdown of skin; I25.10 Atherosclerotic heart disease of native coronary artery without angina pectoris; E78.00 Pure hypercholesterolemia, unspecified; E11.52 Type 2 diabetes mellitus with diabetic peripheral angiopathy with gangrene; I96 Gangrene, not elsewhere classified; E11.22 Type 2 diabetes mellitus with diabetic chronic kidney disease; I13.2 Hypertensive heart and chronic kidney disease with heart failure and with stage 5 chronic kidney disease, or end stage renal disease; N18.6 End stage renal disease; I50.9 Heart failure, unspecified; E11.40 Type 2 diabetes mellitus with diabetic neuropathy, unspecified; J96.20 Acute and chronic respiratory failure, unspecified whether with hypoxia or hypercapnia; J90 Pleural effusion, not elsewhere classified; Z99.2 Dependence on renal dialysis; R62.7 Adult failure to thrive
CPT/HCPCS: 11042; 87070; 87077 ×2; 87186 ×2; J3490

== ENCOUNTER → 2018-05-17 | Outpatient (CLI) | payer MEDICARE ==
[~2018-05-17] MED LIST changes: -LIDOCAINE/PRILOCAINE CREAM 5GM TUBE TP ONE
[2018-05-17 15:53] VITALS: BP 151/73
== END | disposition home or self-care (01) ==
LOC: WHH 14:15
PROVIDERS: ATTEND Family Medicine
DX: E11.621 Type 2 diabetes mellitus with foot ulcer (principal); L97.511 Non-pressure chronic ulcer of other part of right foot limited to breakdown of skin; L97.411 Non-pressure chronic ulcer of right heel and midfoot limited to breakdown of skin; I25.10 Atherosclerotic heart disease of native coronary artery without angina pectoris; E78.00 Pure hypercholesterolemia, unspecified; E11.52 Type 2 diabetes mellitus with diabetic peripheral angiopathy with gangrene; I96 Gangrene, not elsewhere classified; E11.22 Type 2 diabetes mellitus with diabetic chronic kidney disease; I13.2 Hypertensive heart and chronic kidney disease with heart failure and with stage 5 chronic kidney disease, or end stage renal disease; N18.6 End stage renal disease; I50.9 Heart failure, unspecified; R62.7 Adult failure to thrive; J96.20 Acute and chronic respiratory failure, unspecified whether with hypoxia or hypercapnia; J90 Pleural effusion, not elsewhere classified; E11.40 Type 2 diabetes mellitus with diabetic neuropathy, unspecified; Z99.2 Dependence on renal dialysis
CPT/HCPCS: 11042; 11045

== ENCOUNTER → 2018-05-22 | Outpatient (CLI) | payer MEDICARE ==
[~2018-05-22] MED LIST changes: -LIDOCAINE HCL 4% LTA SOL 4 ML VIAL TP ONE
== END | disposition home or self-care (01) ==
LOC: WHH 14:00
PROVIDERS: ATTEND Family Medicine
DX: E11.621 Type 2 diabetes mellitus with foot ulcer (principal); L97.511 Non-pressure chronic ulcer of other part of right foot limited to breakdown of skin; L97.411 Non-pressure chronic ulcer of right heel and midfoot limited to breakdown of skin; S61.200D Unspecified open wound of right index finger without damage to nail, subsequent encounter; I25.10 Atherosclerotic heart disease of native coronary artery without angina pectoris; E78.00 Pure hypercholesterolemia, unspecified; E11.52 Type 2 diabetes mellitus with diabetic peripheral angiopathy with gangrene; I96 Gangrene, not elsewhere classified; E11.22 Type 2 diabetes mellitus with diabetic chronic kidney disease; I13.2 Hypertensive heart and chronic kidney disease with heart failure and with stage 5 chronic kidney disease, or end stage renal disease; N18.6 End stage renal disease; I50.9 Heart failure, unspecified; E11.40 Type 2 diabetes mellitus with diabetic neuropathy, unspecified; Z99.2 Dependence on renal dialysis; X58.XXXD Exposure to other specified factors, subsequent encounter
CPT/HCPCS: 93923

== ENCOUNTER → 2018-05-24 | Outpatient (CLI) | payer MEDICARE ==
[~2018-05-24] MED LIST changes: +LIDOCAINE/PRILOCAINE CREAM 5GM TUBE TP ONE
[2018-05-24 15:44] VITALS: BP 168/78
== END | disposition home or self-care (01) ==
LOC: WHH 14:20
PROVIDERS: ATTEND Family Medicine
DX: E11.621 Type 2 diabetes mellitus with foot ulcer (principal); L97.511 Non-pressure chronic ulcer of other part of right foot limited to breakdown of skin; L97.411 Non-pressure chronic ulcer of right heel and midfoot limited to breakdown of skin; E11.622 Type 2 diabetes mellitus with other skin ulcer; L98.491 Non-pressure chronic ulcer of skin of other sites limited to breakdown of skin; I25.10 Atherosclerotic heart disease of native coronary artery without angina pectoris; E78.00 Pure hypercholesterolemia, unspecified; E11.52 Type 2 diabetes mellitus with diabetic peripheral angiopathy with gangrene; I96 Gangrene, not elsewhere classified; E11.22 Type 2 diabetes mellitus with diabetic chronic kidney disease; I13.2 Hypertensive heart and chronic kidney disease with heart failure and with stage 5 chronic kidney disease, or end stage renal disease; N18.6 End stage renal disease; I50.9 Heart failure, unspecified; E11.40 Type 2 diabetes mellitus with diabetic neuropathy, unspecified; R62.7 Adult failure to thrive; J96.20 Acute and chronic respiratory failure, unspecified whether with hypoxia or hypercapnia; Z99.2 Dependence on renal dialysis
CPT/HCPCS: 11042; 11045; J3490

== ENCOUNTER → 2018-05-30 | Outpatient (CLI) | payer MEDICARE ==
[~2018-05-30] MED LIST changes: -LIDOCAINE/PRILOCAINE CREAM 5GM TUBE TP ONE
== END | disposition home or self-care (01) ==
LOC: SHCH 09:11
PROVIDERS: ATTEND Internal Medicine Cardiovascular Disease
DX: I87.2 Venous insufficiency (chronic) (peripheral) (principal)
CPT/HCPCS: 93970

== ENCOUNTER → 2018-05-31 | Outpatient (CLI) | payer MEDICARE ==
[~2018-05-31] MED LIST changes: +LIDOCAINE/PRILOCAINE CREAM 5GM TUBE TP ONE
[2018-05-31 15:27] VITALS: BP 165/78
== END | disposition home or self-care (01) ==
LOC: WHH 13:50
PROVIDERS: ATTEND Family Medicine
DX: E11.621 Type 2 diabetes mellitus with foot ulcer (principal); L97.411 Non-pressure chronic ulcer of right heel and midfoot limited to breakdown of skin; L97.511 Non-pressure chronic ulcer of other part of right foot limited to breakdown of skin; E11.622 Type 2 diabetes mellitus with other skin ulcer; L98.491 Non-pressure chronic ulcer of skin of other sites limited to breakdown of skin; E11.40 Type 2 diabetes mellitus with diabetic neuropathy, unspecified; J44.9 Chronic obstructive pulmonary disease, unspecified; E11.51 Type 2 diabetes mellitus with diabetic peripheral angiopathy without gangrene; R62.7 Adult failure to thrive; I25.10 Atherosclerotic heart disease of native coronary artery without angina pectoris; J96.20 Acute and chronic respiratory failure, unspecified whether with hypoxia or hypercapnia; E11.22 Type 2 diabetes mellitus with diabetic chronic kidney disease; I13.2 Hypertensive heart and chronic kidney disease with heart failure and with stage 5 chronic kidney disease, or end stage renal disease; N18.6 End stage renal disease; I50.9 Heart failure, unspecified; E11.52 Type 2 diabetes mellitus with diabetic peripheral angiopathy with gangrene; I96 Gangrene, not elsewhere classified; E78.00 Pure hypercholesterolemia, unspecified; J90 Pleural effusion, not elsewhere classified; Z99.2 Dependence on renal dialysis
CPT/HCPCS: 11042; J3490

== ENCOUNTER → 2018-06-07 | Outpatient (CLI) | payer MEDICARE ==
[2018-06-07 15:35] VITALS: BP 136/79
== END | disposition home or self-care (01) ==
LOC: WHH 12:30
PROVIDERS: ATTEND Family Medicine
DX: E11.621 Type 2 diabetes mellitus with foot ulcer (principal); L97.511 Non-pressure chronic ulcer of other part of right foot limited to breakdown of skin; L97.411 Non-pressure chronic ulcer of right heel and midfoot limited to breakdown of skin; E11.622 Type 2 diabetes mellitus with other skin ulcer; L98.491 Non-pressure chronic ulcer of skin of other sites limited to breakdown of skin; J44.9 Chronic obstructive pulmonary disease, unspecified; R62.7 Adult failure to thrive; I25.10 Atherosclerotic heart disease of native coronary artery without angina pectoris; J96.20 Acute and chronic respiratory failure, unspecified whether with hypoxia or hypercapnia; E11.52 Type 2 diabetes mellitus with diabetic peripheral angiopathy with gangrene; I96 Gangrene, not elsewhere classified; E78.00 Pure hypercholesterolemia, unspecified; E11.40 Type 2 diabetes mellitus with diabetic neuropathy, unspecified; I87.2 Venous insufficiency (chronic) (peripheral); E11.22 Type 2 diabetes mellitus with diabetic chronic kidney disease; I13.2 Hypertensive heart and chronic kidney disease with heart failure and with stage 5 chronic kidney disease, or end stage renal disease; N18.6 End stage renal disease; I50.9 Heart failure, unspecified; Z99.2 Dependence on renal dialysis
CPT/HCPCS: 11042; J3490; L3260

== ENCOUNTER → 2018-06-11 | Outpatient (CLI) | payer MEDICARE ==
[~2018-06-11] MED LIST changes: -LIDOCAINE/PRILOCAINE CREAM 5GM TUBE TP ONE
[2018-06-11 15:46] VITALS: BP 138/74
== END | disposition home or self-care (01) ==
LOC: WHH 14:00
PROVIDERS: ATTEND Family Medicine
DX: E11.621 Type 2 diabetes mellitus with foot ulcer (principal); L97.511 Non-pressure chronic ulcer of other part of right foot limited to breakdown of skin; L97.411 Non-pressure chronic ulcer of right heel and midfoot limited to breakdown of skin; L97.521 Non-pressure chronic ulcer of other part of left foot limited to breakdown of skin; E11.622 Type 2 diabetes mellitus with other skin ulcer; L98.491 Non-pressure chronic ulcer of skin of other sites limited to breakdown of skin; J90 Pleural effusion, not elsewhere classified; I25.10 Atherosclerotic heart disease of native coronary artery without angina pectoris; R62.7 Adult failure to thrive; J44.9 Chronic obstructive pulmonary disease, unspecified; J96.20 Acute and chronic respiratory failure, unspecified whether with hypoxia or hypercapnia; E11.52 Type 2 diabetes mellitus with diabetic peripheral angiopathy with gangrene; I96 Gangrene, not elsewhere classified; E78.00 Pure hypercholesterolemia, unspecified; E11.40 Type 2 diabetes mellitus with diabetic neuropathy, unspecified; E11.51 Type 2 diabetes mellitus with diabetic peripheral angiopathy without gangrene; E11.22 Type 2 diabetes mellitus with diabetic chronic kidney disease; I13.2 Hypertensive heart and chronic kidney disease with heart failure and with stage 5 chronic kidney disease, or end stage renal disease; N18.6 End stage renal disease; I50.9 Heart failure, unspecified; I87.2 Venous insufficiency (chronic) (peripheral); Z99.2 Dependence on renal dialysis
CPT/HCPCS: 11042; 11045; A6209

== ENCOUNTER 2018-06-21 12:37 | Day surgery (SDC) | payer MEDICARE ==
[2018-06-19 11:20] VITALS: BP 111/62
[2018-06-19 11:42] LABS: EOSINOPHILS % (AUTO) 11.2 % (0.0-8.0); HEMATOCRIT 35.2 % (42-54); LYMPHOCYTES % (AUTO) 11.9 % (21.0-51.0); MEAN CORPUSCULAR HEMOGLOBIN 31.1 pg (27.0-33.0); MEAN CORPUSCULAR HGB CONC 31.8 g/dL (32.0-36.0); MEAN CORPUSCULAR VOLUME 97.8 fL (79-99); MONOCYTES % (AUTO) 9.6 % (3.0-13.0); NEUTROPHILS % (AUTO) 66.3 % (40.0-77.0); PLATELET COUNT (AUTO) 102 K/uL (130-400); RED CELL DISTRIBUTION WIDTH 16.1 % (11.0-15.5); WHITE BLOOD COUNT (AUTO) 6.1 K/uL (4.8-10.8)
[2018-06-19 11:49] LABS: CREATININE 5.9 mg/dL (0.5-1.5); POTASSIUM 3.9 mmol/L (3.5-5.1)
[2018-06-19 11:54] LABS: INR 1.1 (0.85-1.15); PARTIAL THROMBOPLASTIN TIME 29.4 SEC (26.3-35.5); PROTHROMBIN TIME 11.5 SEC (9.6-11.6)
[2018-06-21] VITALS (10 sets, daily range): BP systolic 98–116; BP diastolic 49–66
[~2018-06-21] VITALS: Ht 160 cm; Wt 61.2 kg
[~2018-06-21 12:37] MED LIST changes: -ALBU50IV5 IV; -ASPI-1005 PO; +ASPI-1181 PO; -ATOR40TA69 PO; +ATOR40TA71 PO; -BISA5TAB12 PO; -CALC667T5 PO; +CYAN200018 PO; -DIPH25 PO; -ENOX30DI5 SQ; -EPOE10I IVP; -FAMO20VI5 IV; -FOLI1CAP24 PO; +FOLI1TAB85 PO; +GABA-531 PO; +HYDR-3421 PO; -LACT10SO9 PO; -LEVO500T89 PO; -METO25TA6 PO; -MIDO5TAB PO; -MIRALAX PO; -ONDA4VIA22 IV; -RIFA550T PO; -SIME80TA12 PO; -TRAM50TA2 PO; -[UNRECOGNIZED DRUG - CODE] IV
[2018-06-21 13:13] LABS: BASOPHILS % (AUTO) 0.8 % (0.0-5.0); EOSINOPHILS % (AUTO) 7.8 % (0.0-8.0); HEMATOCRIT 35.8 % (42-54); MEAN CORPUSCULAR HGB CONC 30.6 g/dL (32.0-36.0); MEAN CORPUSCULAR VOLUME 101.2 fL (79-99); MONOCYTES % (AUTO) 12.2 % (3.0-13.0); NEUTROPHILS % (AUTO) 67.2 % (40.0-77.0); NUCLEATED RED BLOOD CELLS 0.3 % (0.0-0.19); PLATELET COUNT (AUTO) 116 K/uL (130-400); RED BLOOD CELL COUNT(AUTO) 3.54 MIL/uL (4.50-6.20); RED CELL DISTRIBUTION WIDTH 16.3 % (11.0-15.5); WHITE BLOOD COUNT (AUTO) 6.3 K/uL (4.8-10.8)
[2018-06-21] MEDS ORDERED: NITROGLYCERIN 5 MG/ML 10 ML VIAL IV ONE (15:50)
[2018-06-21] MEDS ORDERED: IODIXANOL 320 MG/ML 100 ML VIAL ONE (15:50)
[2018-06-21] MEDS ORDERED: HEPARIN SODIUM 1000UNIT/ML 10ML VIAL ONE (15:50)
[2018-06-21] MEDS ORDERED: MIDAZOLAM HCL 1 MG/ML 2ML VIAL ONE (15:50)
[2018-06-21] MEDS ORDERED: FENTANYL CITRATE PF 50 MCG/1 ML 2ML VIAL ONE (15:50)
[2018-06-21] MEDS ORDERED: LIDOCAINE HCL 2% 20ML ONE (15:51)
[2018-06-21] MEDS ORDERED: DEXTROSE 50%-WATER 50 ML DISP.SYRIN IV PRN (17:15)
[2018-06-21] MEDS ORDERED: GLUCAGON 1MG KIT 1 MG ML IM PRN (17:15)
[2018-06-21] MEDS ORDERED: INSULIN HUMULIN R 100 UNIT/ML 3ML SQ SCH (21:00)
== END 2018-06-21 20:50 | disposition home or self-care (01) ==
LOC: DAH 12:37
PROVIDERS: ATTEND Internal Medicine Cardiovascular Disease
DX: I70.211 Atherosclerosis of native arteries of extremities with intermittent claudication, right leg (principal); I70.0 Atherosclerosis of aorta; Z98.890 Other specified postprocedural states; Z79.899 Other long term (current) drug therapy; Z79.01 Long term (current) use of anticoagulants
CPT/HCPCS: 36247; 36415 ×2; 75630; 80048; 82948 ×4; 85025 ×2; 85610; 85730; A4606; C1760; C1769; C1893; C1894 ×2; J1644; J3490 ×2; Q9967; J2250; J3010

== ENCOUNTER → 2018-07-02 | Outpatient (CLI) | payer MEDICARE ==
[~2018-07-02] MED LIST changes: +HONEY 1 APPL/ML TUBE TP ONE
[2018-07-02 16:46] VITALS: BP 157/76
== END | disposition home or self-care (01) ==
LOC: WHH 14:15
PROVIDERS: ATTEND Family Medicine
DX: E11.621 Type 2 diabetes mellitus with foot ulcer (principal); L97.512 Non-pressure chronic ulcer of other part of right foot with fat layer exposed; L97.521 Non-pressure chronic ulcer of other part of left foot limited to breakdown of skin; E11.622 Type 2 diabetes mellitus with other skin ulcer; L98.491 Non-pressure chronic ulcer of skin of other sites limited to breakdown of skin; J90 Pleural effusion, not elsewhere classified; I25.10 Atherosclerotic heart disease of native coronary artery without angina pectoris; R62.7 Adult failure to thrive; J44.9 Chronic obstructive pulmonary disease, unspecified; J96.20 Acute and chronic respiratory failure, unspecified whether with hypoxia or hypercapnia; E11.52 Type 2 diabetes mellitus with diabetic peripheral angiopathy with gangrene; I96 Gangrene, not elsewhere classified; E78.00 Pure hypercholesterolemia, unspecified; E11.40 Type 2 diabetes mellitus with diabetic neuropathy, unspecified; E11.51 Type 2 diabetes mellitus with diabetic peripheral angiopathy without gangrene; E11.22 Type 2 diabetes mellitus with diabetic chronic kidney disease; I13.2 Hypertensive heart and chronic kidney disease with heart failure and with stage 5 chronic kidney disease, or end stage renal disease; N18.6 End stage renal disease; I50.9 Heart failure, unspecified; I87.2 Venous insufficiency (chronic) (peripheral); Z99.2 Dependence on renal dialysis; Z79.01 Long term (current) use of anticoagulants; Z79.899 Other long term (current) drug therapy
CPT/HCPCS: 11042

== ENCOUNTER → 2018-07-09 | Outpatient (CLI) | payer MEDICARE ==
[~2018-07-09] MED LIST changes: -HONEY 1 APPL/ML TUBE TP ONE
[2018-07-09 16:07] VITALS: BP 127/70
== END | disposition home or self-care (01) ==
LOC: WHH 14:15
PROVIDERS: ATTEND Family Medicine
DX: E11.621 Type 2 diabetes mellitus with foot ulcer (principal); L97.512 Non-pressure chronic ulcer of other part of right foot with fat layer exposed; L97.521 Non-pressure chronic ulcer of other part of left foot limited to breakdown of skin; E11.622 Type 2 diabetes mellitus with other skin ulcer; L98.492 Non-pressure chronic ulcer of skin of other sites with fat layer exposed; E11.40 Type 2 diabetes mellitus with diabetic neuropathy, unspecified; E11.52 Type 2 diabetes mellitus with diabetic peripheral angiopathy with gangrene; I96 Gangrene, not elsewhere classified; E11.22 Type 2 diabetes mellitus with diabetic chronic kidney disease; I13.2 Hypertensive heart and chronic kidney disease with heart failure and with stage 5 chronic kidney disease, or end stage renal disease; N18.6 End stage renal disease; I50.9 Heart failure, unspecified; I70.211 Atherosclerosis of native arteries of extremities with intermittent claudication, right leg; I70.0 Atherosclerosis of aorta; I25.10 Atherosclerotic heart disease of native coronary artery without angina pectoris; E78.00 Pure hypercholesterolemia, unspecified; J90 Pleural effusion, not elsewhere classified; J44.9 Chronic obstructive pulmonary disease, unspecified; R62.7 Adult failure to thrive; J96.20 Acute and chronic respiratory failure, unspecified whether with hypoxia or hypercapnia; I87.2 Venous insufficiency (chronic) (peripheral); Z99.2 Dependence on renal dialysis; Z79.01 Long term (current) use of anticoagulants; Z79.899 Other long term (current) drug therapy
CPT/HCPCS: 11042; 11045; 87070; 87077; 87186

== ENCOUNTER → 2018-09-03 | Outpatient (CLI) | payer MEDICARE ==
[~2018-09-03] MED LIST changes: +HONEY 1 APPL/ML TUBE TP ONE; +LIDOCAINE/PRILOCAINE CREAM 5GM TUBE TP ONE
[2018-09-03 16:49] VITALS: BP 162/90
== END | disposition home or self-care (01) ==
LOC: WHH 14:15
PROVIDERS: ATTEND Family Medicine
DX: T87.89 Other complications of amputation stump (principal); T81.89XD Other complications of procedures, not elsewhere classified, subsequent encounter; E11.621 Type 2 diabetes mellitus with foot ulcer; L97.511 Non-pressure chronic ulcer of other part of right foot limited to breakdown of skin; I70.25 Atherosclerosis of native arteries of other extremities with ulceration; E11.622 Type 2 diabetes mellitus with other skin ulcer; L98.492 Non-pressure chronic ulcer of skin of other sites with fat layer exposed; E11.40 Type 2 diabetes mellitus with diabetic neuropathy, unspecified; E11.52 Type 2 diabetes mellitus with diabetic peripheral angiopathy with gangrene; I96 Gangrene, not elsewhere classified; E11.22 Type 2 diabetes mellitus with diabetic chronic kidney disease; I13.2 Hypertensive heart and chronic kidney disease with heart failure and with stage 5 chronic kidney disease, or end stage renal disease; N18.6 End stage renal disease; I50.9 Heart failure, unspecified; I70.211 Atherosclerosis of native arteries of extremities with intermittent claudication, right leg; I25.10 Atherosclerotic heart disease of native coronary artery without angina pectoris; E78.00 Pure hypercholesterolemia, unspecified; J90 Pleural effusion, not elsewhere classified; J44.9 Chronic obstructive pulmonary disease, unspecified; I87.2 Venous insufficiency (chronic) (peripheral); R62.7 Adult failure to thrive; Z79.01 Long term (current) use of anticoagulants; Z79.899 Other long term (current) drug therapy; Z99.2 Dependence on renal dialysis; Y83.8 Other surgical procedures as the cause of abnormal reaction of the patient, or of later complication, without mention of misadventure at the time of the procedure; Y83.5 Amputation of limb(s) as the cause of abnormal reaction of the patient, or of later complication, without mention of misadventure at the time of the procedure
CPT/HCPCS: 11042; J3490

== ENCOUNTER 2018-12-01 16:43 | Inpatient (IN) | payer MEDICARE ==
[2018-12-01] VITALS (12 sets, daily range): BP systolic 73–142; BP diastolic 42–85
[~2018-12-01] VITALS: Ht 170.2 cm; Wt 45.6 kg
[~2018-12-01 16:43] MED LIST changes: -HONEY 1 APPL/ML TUBE TP ONE; -LIDOCAINE/PRILOCAINE CREAM 5GM TUBE TP ONE
--- NOTE | 2018-12-01 17:00 | NUR ---
RECIEVED PT FROM [facility]- PLACED IN ROOM 208. PLACED ON VENBT SETTINGS AC 9/TV500/PEEP 5/FIO2 50%
[2018-12-01] MEDS ORDERED: LABETALOL HCL 5 MG/ML 20ML VIAL IV PRN ×2 (17:15→19:45)
[2018-12-01] MEDS ORDERED: [UNRECOGNIZED DRUG - OTHER] IV SCH (17:15)
[2018-12-01] MEDS ORDERED: FENTANYL CITRATE IV PRN (17:15)
[2018-12-01] MEDS ORDERED: NYSTATIN 30 GM CREAM.GM. TP PRN (17:15)
[2018-12-01] MEDS ORDERED: ONDANSETRON 4 MG TABLET PO PRN (17:15)
[2018-12-01] MEDS ORDERED: LACTULOSE 20 GM/30 ML UDCUP PO PRN (17:15)
[2018-12-01] MEDS ORDERED: HALOPERIDOL LACTATE 5 MG/ML VIAL IV PRN (17:15)
[2018-12-01] MEDS ORDERED: ACETAMINOPHEN ELIXIR 160 MG/5ML UDCUP PO PRN (17:15)
[2018-12-01] MEDS ORDERED: HYDROXYZINE HCL 25 MG TABLET PO PRN ×2 (17:15)
[2018-12-01] MEDS ORDERED: ZIPRASIDONE MESYLATE 20 MG/VIAL IM PRN (17:15)
[2018-12-01] MEDS ORDERED: HYDRALAZINE HCL 20 MG/ML VIAL IV PRN ×2 (17:15→19:45)
[2018-12-01] MEDS ORDERED: [UNRECOGNIZED DRUG - OTHER] IV PRN (17:15)
[2018-12-01] MEDS ORDERED: D5W IV SCH (17:15)
[2018-12-01] MEDS ORDERED: MIDODRINE HCL 5 MG TABLET PO SCH (17:15)
[2018-12-01] MEDS ORDERED: PROPOFOL IV SCH (17:15)
[2018-12-01] MEDS ORDERED: NOREPINEPHRINE BITARTRATE IV SCH (17:15)
[2018-12-01] MEDS ORDERED: ALBU2.5V2 IH (18:02)
[2018-12-01] MEDS ORDERED: CINA30 PO (18:02)
[2018-12-01] MEDS ORDERED: SIME80TA12 PO (18:02)
[2018-12-01] MEDS ORDERED: ATOR40TA69 PO (18:02)
[2018-12-01] MEDS ORDERED: ESOM40SU PO (18:02)
[2018-12-01] MEDS ORDERED: [UNRECOGNIZED DRUG - CODE] IV (18:02)
[2018-12-01] MEDS ORDERED: ASPI-1005 PO (18:02)
[2018-12-01] MEDS ORDERED: LABE5VIA3 IV (18:02)
[2018-12-01] MEDS ORDERED: METO25TA6 PO (18:02)
[2018-12-01] MEDS ORDERED: PIPE3.376 IV (18:02)
[2018-12-01] MEDS ORDERED: SEVE800T7 PO (18:02)
[2018-12-01] MEDS ORDERED: NITR1OIN TD (18:02)
[2018-12-01] MEDS ORDERED: NORE8PLA12 IV (18:02)
[2018-12-01] MEDS ORDERED: LACT10SO9 PO (18:02)
[2018-12-01] MEDS ORDERED: ONDA4TAB9 PO (18:02)
[2018-12-01] MEDS ORDERED: FOLI1TAB61 PO (18:02)
[2018-12-01] MEDS ORDERED: INSREG SQ (18:02)
[2018-12-01] MEDS ORDERED: ALLO100T PO (18:02)
[2018-12-01] MEDS ORDERED: BUDE0.5A3 IH (18:02)
[2018-12-01] MEDS ORDERED: HYDR-3421 PO (18:02)
[2018-12-01] MEDS ORDERED: HYDR20VI6 IV (18:02)
[2018-12-01] MEDS ORDERED: ACET160E68 PO (18:02)
[2018-12-01] MEDS ORDERED: ZIPR20I IM (18:02)
[2018-12-01] MEDS ORDERED: BALS60OI TP (18:02)
[2018-12-01] MEDS ORDERED: NYST100P2 MC (18:02)
[2018-12-01] MEDS ORDERED: MIDO5TAB PO (18:02)
[2018-12-01] MEDS ORDERED: DARB100D SQ (18:02)
[2018-12-01] MEDS ORDERED: [UNRECOGNIZED DRUG - CODE] IJ (18:02)
[2018-12-01] MEDS ORDERED: FENT50DI IV (18:02)
[2018-12-01] MEDS ORDERED: DICL2100G TP (18:02)
[2018-12-01] MEDS ORDERED: NEOM500T PO (18:02)
[2018-12-01] MEDS ORDERED: GLUCAGON 1MG KIT 1 MG ML IM PRN (18:30)
[2018-12-01] MEDS ORDERED: DEXTROSE 50%-WATER 50 ML DISP.SYRIN IV PRN (18:30)
--- NOTE | 2018-12-01 19:30 | NUR ---
HAND OFF REPORT GIVEN TO CHASE TORRES
--- NOTE | 2018-12-01 19:30 | NUR ---
ASSESSMENT PT RESTING CALMLY IN BED, AAO, FOLLOWS COMMANDS, INTUBATED. FAMILY AT BEDSIDE. POWER PICC TO DELICIA IN PLACE, UNABLE TO ASPIRATE BLOOD FROM LINE. NSR. VENT SETTINGS: AC-9-50%-500, PEEP 10, ETT 7.5 23 AT LIP. MULTIPLE SKIN JANE, SEE NURSING ASSESSMENT FLOW SHEET. URMILA REVIEWED AND WITHIN REACH, WHITE BOARD UP-DATED. ASSESSMENT COMPLETED, SEE FLOW SHEET. Addendum: 12/02/18 at 0423 by CHASE RANGEL RN RN PEEP IS 5
[2018-12-01] MEDS ORDERED: PROPOFOL 1000 MG/100 ML 100 ML IV PRN (19:45)
[2018-12-01] MEDS ORDERED: NYSTATIN 15 GM POWDER TP PRN (19:54)
[2018-12-01] MEDS ORDERED: NOREPINEPHRINE BITARTRATE 8 MG/NS 250ML IV SCH ×2 (20:00)
[2018-12-01] MEDS ORDERED: ACETAMINOPHEN ELIXIR 650 MG/20.3 ML UDCUP PEG PRN ×2 (20:30)
[2018-12-01] MEDS: BALSAM PERU/CASTOR OIL 60 GM TUBE TP SCH (21:00)
[2018-12-01] MEDS ORDERED: [UNRECOGNIZED DRUG - OTHER] IV SCH (21:00)
[2018-12-01] MEDS ORDERED: INSULIN HUMULIN R 100 UNIT/ML 3ML SQ SCH (21:00)
[2018-12-01] MEDS ORDERED: ATORVASTATIN CALCIUM 40 MG TABLET PO SCH (21:00)
[2018-12-01] MEDS ORDERED: INSULIN R PO SS1 SQ SCH (21:00)
[2018-12-01] MEDS: ZOSYN 3.375GM+NS 50ML 50 ML IV SCH (21:29)
[2018-12-01] MEDS: SIMETHICONE 80 MG TAB.CHEW PO SCH (21:31)
[2018-12-01] MEDS: ATORVASTATIN CALCIUM 40 MG TABLET PO SCH (21:31)
[2018-12-01] MEDS: NITROGLYCERIN 1GM/1 INCH PACKET TD SCH (21:32)
[2018-12-01] MEDS: METOPROLOL TARTRATE 25 MG TAB PO SCH (21:33)
--- NOTE | 2018-12-01 23:00 | NUR ---
ASSESSMENT PT RESTING CALMLY IN BED, AAO, FOLLOWS COMMANDS, INTUBATED. FAMILY AT BEDSIDE. POWER PICC TO DELICIA IN PLACE, UNABLE TO ASPIRATE BLOOD FROM LINE. NSR. VENT SETTINGS: AC-9-50%-500, PEEP 10, ETT 7.5 23 AT LIP. MULTIPLE SKIN JANE, SEE NURSING ASSESSMENT FLOW SHEET. CALLBELL WITHIN REACH. ASSESSMENT COMPLETED, SEE FLOW SHEET. Addendum: 12/02/18 at 0422 by CHASE RANGEL RN RN PEEP IS 5
[2018-12-01] MEDS: ALBUTEROL SULFATE 0.083% 2.5 MG/3 ML INH IH SCH (23:30)
[2018-12-01] MEDS: NEOMYCIN SULFATE 500 MG TAB NG SCH (23:51)
[2018-12-02] VITALS (48 sets, daily range): BP systolic 70–171; BP diastolic 31–100
[2018-12-02] MEDS: MIDODRINE HCL 5 MG TABLET PO SCH ×3 (00:04→18:41)
[2018-12-02] MEDS: INSULIN HUMULIN R 100 UNIT/ML 3ML SQ SCH ×4 (00:05→18:00)
[2018-12-02] MEDS ORDERED: HALOPERIDOL LACTATE 5 MG/ML VIAL IV PRN (01:15)
--- NOTE | 2018-12-02 03:00 | NUR ---
ASSESSMENT PT RESTING CALMLY IN BED, AAO, FOLLOWS COMMANDS, INTUBATED. FAMILY AT BEDSIDE. POWER PICC TO DELICIA IN PLACE, UNABLE TO ASPIRATE BLOOD FROM LINE. NSR. VENT SETTINGS: AC-9-50%-500, PEEP 10, ETT 7.5 23 AT LIP. MULTIPLE SKIN BREAKDOWN , SEE PICTURES, SEE NURSING ASSESSMENT FLOW SHEET. CALLBELL WITHIN REACH. ASSESSMENT COMPLETED, SEE FLOW SHEET. Addendum: 12/02/18 at 0422 by CHASE RANGEL RN RN PEEP IS 5
[2018-12-02 03:52] LABS: HEMATOCRIT 39.8 % (42-54); MEAN CORPUSCULAR HEMOGLOBIN 29.1 pg (27.0-33.0); MEAN CORPUSCULAR VOLUME 91.1 fL (79-99); NUCLEATED RED BLOOD CELLS 0.2 % (0.0-0.19); PLATELET COUNT (AUTO) 290 K/uL (130-400); RED BLOOD CELL COUNT(AUTO) 4.37 MIL/uL (4.50-6.20); RED CELL DISTRIBUTION WIDTH 18.9 % (11.0-15.5); WHITE BLOOD COUNT (AUTO) 11.9 K/uL (4.8-10.8)
[2018-12-02 04:00] LABS: CREATININE 3.6 mg/dL (0.5-1.5); INR 1.09 (0.85-1.15); PARTIAL THROMBOPLASTIN TIME 31.3 SEC (26.3-35.5); POTASSIUM 3.4 mmol/L (3.5-5.1); PROTHROMBIN TIME 11.4 SEC (9.6-11.6)
[2018-12-02 04:01] LABS: EOSINOPHILS % (MANUAL) 2 % (1-6); LYMPHOCYTES % (MANUAL) 7 % (22-44); MAN.DIFF COMMENT-IMPRESSION MANUAL DIFFERENTIAL; MONOCYTES % (MANUAL) 3 % (2-9); PLATELET MORPHOLOGY COMMENT ADEQUATE; SEGMENTED NEUTROPHILS % 88 % (40-70)
[2018-12-02] MEDS: NEOMYCIN SULFATE 500 MG TAB NG SCH ×3 (04:25→18:41)
[2018-12-02] MEDS: METOPROLOL TARTRATE 25 MG TAB PO SCH ×3 (04:25→20:59)
[2018-12-02] MEDS: ALBUTEROL SULFATE 0.083% 2.5 MG/3 ML INH IH SCH ×4 (07:01→23:26)
--- NOTE | 2018-12-02 07:14 | NUR ---
REPORT REPORT GIVEN TO DEMARCO TORRES RN, ORDERS REVIEWED.
[2018-12-02] MEDS: SEVELAMER HCL 800 MG TABLET PO SCH ×3 (08:45→15:50)
[2018-12-02] MEDS: ASPIRIN 81MG TAB.CHEW PO SCH (08:45)
[2018-12-02] MEDS: SIMETHICONE 80 MG TAB.CHEW PO SCH ×3 (08:45→20:59)
[2018-12-02] MEDS: FOLIC ACID/VITAMIN B COMP W-C 1 MG CAPSULE PO SCH (08:45)
[2018-12-02] MEDS: ALLOPURINOL 100 MG TABLET PO SCH (08:46)
[2018-12-02] MEDS: BALSAM PERU/CASTOR OIL 60 GM TUBE TP SCH ×2 (08:46→21:00)
[2018-12-02] MEDS: NITROGLYCERIN 1GM/1 INCH PACKET TD SCH ×2 (08:46→20:59)
[2018-12-02] MEDS: ZOSYN 3.375GM+NS 50ML 50 ML IV SCH ×2 (08:48→20:59)
[2018-12-02] MEDS: CINACALCET HCL 30 MG TAB PO SCH (08:49)
[2018-12-02] MEDS: APPL TP SCH ×2 (08:50→21:00)
[2018-12-02] MEDS: DICLOFENAC SODIUM TP SCH ×2 (08:50→21:00)
[2018-12-02] MEDS ORDERED: CINACALCET HCL 30 MG TAB PO SCH (09:00)
[2018-12-02] MEDS ORDERED: ASPIRIN 81 MG EC TAB PO SCH (09:00)
--- NOTE | 2018-12-02 11:01 | NUR ---
[facility] consult Patient assessed as ordered. Patient with multiple wounds to fingers and feet; breakdown also noted to sacral and perineal area. [facility] recommendations submitted. Addendum: 12/02/18 at 1103 by AMBREEN JACOBS RN/ Amended: Links added.
--- NOTE | 2018-12-02 12:03 | NUR ---
DC Plan Discussed dcp with patient's Payal Calero. States plan is to return back to [facility]. Patient transferred from [facility] to here for trache/PEG placement. Anticipate return tomorrow. , Payal, signed KOBI and Choice Letter. EMS set up for 12/03/18. MOT in chart, pending MD and [employer]'s signature. DCP back to [facility]. Addendum: 12/02/18 at 1204 by DANIELLE NELSON Amended: Links added.
[2018-12-02] MEDS ORDERED: ETOMIDATE 2 MG/ML 10 ML VIAL ONE (13:02)
[2018-12-02] MEDS ORDERED: PHENYLEPHRINE HCL 10 MG/ML 1ML VIAL IV ONE (13:03)
[2018-12-02] MEDS ORDERED: ROCURONIUM 10MG/1ML SYR 10 MG/ML ML ONE (13:03)
[2018-12-02] MEDS ORDERED: SUCCINYLCHOLINE 200MG/10ML SYR ONE (13:03)
[2018-12-02] MEDS ORDERED: PROPOFOL 10 MG/ML 20ML VIAL IV ONE (13:04)
[2018-12-02] MEDS ORDERED: MIDAZOLAM HCL 1 MG/ML 2ML VIAL ONE (13:15)
[2018-12-02] MEDS ORDERED: SODIUM CHLORIDE 0.9% 500ML 500 ML IV ONE (13:16)
[2018-12-02] MEDS ORDERED: MIDAZOLAM HCL 1 MG/ML 2ML VIAL IVP SCH (13:30)
--- NOTE | 2018-12-02 13:30 | NUR ---
BRONCHOSCOPY/TRACH PLACEMENT AT BEDSIDE DR PINA, DR FORRESTER AND GI LAB TEAM AT BEDSIDE TO PERFORM BRONCHOSCOPY AND TRACHEOSTOMY. 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 DR HULL CONSULTED FOR TRACH PLACEMENT IN OR.
--- NOTE | 2018-12-02 15:43 | NUR ---
RD Notification - Trigger Patient NPO at time of screen. Patient to have PEG placement, however no feedings at this time as per RN. Patient LBM 12/02/18. Patient monitored labs: Na 134, K 3.4, Cl 93, BUN 45, Cr 3.6, GFR 19, Ca 12.5. Pending Tube feeding recommendations. RD to continue to monitor. Please notify RD as nutritional concerns arise. Thank you. Addendum: 12/02/18 at [address] Amended: Links added.
[2018-12-02] MEDS ORDERED: MORPHINE SULFATE 2 MG/ML 1ML SYG IVP PRN (20:15)
[2018-12-02] MEDS ORDERED: PROPOFOL 1000 MG/100 ML IV PRN (20:15)
[2018-12-02] MEDS ORDERED: MORPHINE SULFATE 2 MG/ML 1ML SYG ONE (20:47)
[2018-12-02] MEDS: ATORVASTATIN CALCIUM 40 MG TABLET PO SCH (20:59)
[2018-12-02] MEDS ORDERED: PROPOFOL 1000 MG/100 ML 100 ML IV PRN (21:00)
[2018-12-03] VITALS (32 sets, daily range): BP systolic 81–173; BP diastolic 35–119
[2018-12-03 03:42] LABS: EOSINOPHILS % (AUTO) 1.4 % (0.0-8.0); HEMATOCRIT 38.2 % (42-54); LYMPHOCYTES % (AUTO) 8.6 % (21.0-51.0); MEAN CORPUSCULAR HEMOGLOBIN 28.7 pg (27.0-33.0); MEAN CORPUSCULAR HGB CONC 31.9 g/dL (32.0-36.0); MONOCYTES % (AUTO) 7.4 % (3.0-13.0); NEUTROPHILS % (AUTO) 81.6 % (40.0-77.0); PLATELET COUNT (AUTO) 349 K/uL (130-400); RED BLOOD CELL COUNT(AUTO) 4.25 MIL/uL (4.50-6.20); WHITE BLOOD COUNT (AUTO) 13.2 K/uL (4.8-10.8)
[2018-12-03 03:47] LABS: INR 1.07 (0.85-1.15); PROTHROMBIN TIME 11.2 SEC (9.6-11.6)
[2018-12-03 03:59] LABS: CREATININE 4.6 mg/dL (0.5-1.5); POTASSIUM 3.9 mmol/L (3.5-5.1)
[2018-12-03] MEDS: METOPROLOL TARTRATE 25 MG TAB PO SCH ×2 (04:31→11:05)
[2018-12-03] MEDS: NEOMYCIN SULFATE 500 MG TAB NG SCH ×4 (05:25→18:00)
[2018-12-03] MEDS: INSULIN HUMULIN R 100 UNIT/ML 3ML SQ SCH ×4 (06:00→18:00)
[2018-12-03] MEDS: ALBUTEROL SULFATE 0.083% 2.5 MG/3 ML INH IH SCH ×3 (06:28→18:17)
[2018-12-03] MEDS: SEVELAMER HCL 800 MG TABLET PO SCH ×3 (07:48→17:00)
[2018-12-03] MEDS: MIDODRINE HCL 5 MG TABLET PO SCH ×3 (07:48→16:00)
[2018-12-03] MEDS: ASPIRIN 81MG TAB.CHEW PO SCH (07:48)
[2018-12-03] MEDS: FOLIC ACID/VITAMIN B COMP W-C 1 MG CAPSULE PO SCH (07:49)
[2018-12-03] MEDS: SIMETHICONE 80 MG TAB.CHEW PO SCH ×2 (07:49→11:05)
[2018-12-03] MEDS: ALLOPURINOL 100 MG TABLET PO SCH (07:49)
[2018-12-03] MEDS: CINACALCET HCL 30 MG TAB PO SCH (07:49)
[2018-12-03] MEDS: APPL TP SCH ×2 (07:50→20:12)
[2018-12-03] MEDS: DICLOFENAC SODIUM TP SCH ×2 (07:50→20:12)
[2018-12-03] MEDS ORDERED: BUDESONIDE 0.25 MG/2 ML INH IH SCH (09:00)
[2018-12-03] MEDS ORDERED: PANTOPRAZOLE SODIUM 40 MG TABLET.DR PO SCH (09:00)
[2018-12-03] MEDS: ZOSYN 3.375GM+NS 50ML 50 ML IV SCH (09:02)
[2018-12-03] MEDS: NITROGLYCERIN 1GM/1 INCH PACKET TD SCH (09:03)
--- NOTE | 2018-12-03 09:19 | NUR ---
Patient taken to OR with 3 nurses, on O2 and compliance monitor. Family at bedside, informed of where to wait.
[2018-12-03] MEDS ORDERED: ROCURONIUM 10MG/1ML SYR 10 MG/ML ML ONE (09:24)
[2018-12-03] MEDS ORDERED: PROPOFOL 10 MG/ML 20ML VIAL IV ONE (09:24)
[2018-12-03] MEDS ORDERED: LIDOCAINE HCL/EPINEPHRINE 50 ML VIAL IJ ONE (09:33)
[2018-12-03] MEDS ORDERED: GLYCOPYRROLATE 1 MG/5 ML SYRINGE ONE (10:19)
[2018-12-03] MEDS ORDERED: NEOSTIGMINE 5MG/5ML SYR IV ONE (10:19)
--- NOTE | 2018-12-03 16:10 | NUR ---
Report called to Pool TORRES at [facility]. Patient will be going to ICU. All questions answered. Patient's called, she is aware of the discharge.
[2018-12-03] MEDS: BALSAM PERU/CASTOR OIL 60 GM TUBE TP SCH ×2 (16:21→20:13)
[2018-12-08] MEDS ORDERED: DARBEPOETIN ALFA IN POLYSORBAT 100 MCG SQ SCH (09:00)
== END 2018-12-03 21:39 | DRG 4 ==
LOC: 2BH 16:43 → EDSTATUS 12-02 13:00
PROVIDERS: ADMIT Internal Medicine; ATTEND Internal Medicine
PROC: 5A1945Z Respiratory Ventilation, 24-96 Consecutive Hours (ICD-10-PCS; 2018-12-01)
PROC: 0BH17EZ Insertion of Endotracheal Airway into Trachea, Via Natural or Artificial Opening (ICD-10-PCS; 2018-12-01)
PROC: 0B978ZZ Drainage of Left Main Bronchus, Via Natural or Artificial Opening Endoscopic (ICD-10-PCS; 2018-12-03)
PROC: 0B938ZZ Drainage of Right Main Bronchus, Via Natural or Artificial Opening Endoscopic (ICD-10-PCS; 2018-12-03)
PROC: 0DH63UZ Insertion of Feeding Device into Stomach, Percutaneous Approach (ICD-10-PCS; 2018-12-03)
PROC: 0B110F4 Bypass Trachea to Cutaneous with Tracheostomy Device, Open Approach (ICD-10-PCS; principal; 2018-12-03 09:20)
PROC: 0B9D8ZX Drainage of Right Middle Lung Lobe, Via Natural or Artificial Opening Endoscopic, Diagnostic (ICD-10-PCS; 2018-12-03 09:20)
DX: A41.9 Sepsis, unspecified organism (principal); R65.21 Severe sepsis with septic shock; N18.6 End stage renal disease; J18.9 Pneumonia, unspecified organism; M86.9 Osteomyelitis, unspecified; E11.52 Type 2 diabetes mellitus with diabetic peripheral angiopathy with gangrene; I12.0 Hypertensive chronic kidney disease with stage 5 chronic kidney disease or end stage renal disease; I96 Gangrene, not elsewhere classified; J96.11 Chronic respiratory failure with hypoxia; Z99.11 Dependence on respirator [ventilator] status; E11.69 Type 2 diabetes mellitus with other specified complication; E11.22 Type 2 diabetes mellitus with diabetic chronic kidney disease; R13.12 Dysphagia, oropharyngeal phase; I25.10 Atherosclerotic heart disease of native coronary artery without angina pectoris; K31.89 Other diseases of stomach and duodenum; Z89.439 Acquired absence of unspecified foot; Z99.2 Dependence on renal dialysis
CPT/HCPCS: 36415; 43246; 71045; 80048; 82948; 85025; 85610; 85730; 94002; 94003; 94640; 94664; G0378; J0330; J1815; J2250; J2370; J2543; J2704; J2710; J3490; J7040

== ENCOUNTER → 2018-12-17 | Outpatient (CLI) | payer MEDICARE ==
[~2018-12-17] MED LIST changes: +ACET160E68 PO; +ALBU2.5V2 IH; +ALLO100T PO; +ASPI-1005 PO; +ATOR40TA69 PO; +BALS60OI TP; +BUDE0.5A3 IH; +DARB100D SQ; +DICL2100G TP; +ESOM40SU PO; +FENT50DI IV; +FOLI1TAB61 PO; +HYDR20VI6 IV; +INSREG SQ; +LABE5VIA3 IV; +LACT10SO9 PO; +METO25TA6 PO; +MIDO5TAB PO; +NEOM500T PO; +NITR1OIN TD; +NORE8PLA12 IV; +NYST100P2 MC; +ONDA4TAB9 PO; +PIPE3.376 IV; +SEVE800T7 PO; +SIME80TA12 PO; +ZIPR20I IM; +[UNRECOGNIZED DRUG - CODE] IJ; +[UNRECOGNIZED DRUG - CODE] IV
--- NOTE | 2018-12-17 11:30 | NUR ---
MBSS COMPLETE. + NON-TRANSIENT PENETRATION WITH THIN LIQUIDS VIA CUP SIP. RECOMMEND PLEASURE FEEDS OF MECHANICAL SOFT/CHOPPED, NECTAR-THICK LIQUIDS. SUPPLEMENTED WITH PEG FEEDINGS. PATIENT INFORMATION: Pt IS A 58 Y.O. MALE REFERRED FOR AN MBSS SECONDARY TO IMPROVED RESPIRATORY STATUS. Pt COOPERATIVE DURING THE EVALUATION. Pt ACCOMPANIED BY AT THE TIME OF THE MBSS. Pt IS CURRENTLY AT A LOCAL [facility]. Pt WITH THE FOLLOWING MEDICAL PROBLEMS: CHF, OSTEOMYELITIS, CAD, SLEEP APNEA, CIRRHOSIS, RESPIRATORY DISTRESS, PULMONARY HYPERTENSION, ESRD-HD, S/P RESPIRATORY FAILURE WITH TRACH PLACEMENT AND PEG ON 12/01/2018. Pt PARTICIPATED IN MBSS WITH CAD ADMINISTRATOR ON TRACH AND ROOM AIR. MBSS INTERPRETATION: Pt PRESENTS WITH MILD ORAL AND MODERATE-SEVERE PHARYNGEAL DYSPHAGIA CAUSED BY DECREASED ORAL MOTOR COORDINATION, DECREASED ACTIVITY TOLERANCE, DECREASED TONGUE BASE RETRACTION, DELAYED PHARYNGEAL RESPONSE TIME, DECREASED PRESSURE GENERATION WITHIN THE PHARYNX, EVIDENCED BY MILD RESIDUE IN TONGUE BODY, SEVERE POOLING IN VALLECULAE AND PYRIFORM SINUS (RISK OF OVERFLOW INTO AIRWAY AFTER THE SWALLOW), RESULTING IN DEEP NON-TRANSIENT PENETRATION WITH THIN LIQUIDS VIA CUP SIP WITH NO COUGH RESPONSE. NO ASPIRATION PRESENT AT THE TIME OF THE MBSS. PLEASE NOTE THAT Pt REQUIRED MAX CUES FOR EFFORTFUL SWALLOW DURING THE MBSS AND RE-SWALLOW TO CLEAR RESIDUE IN PYRIFORM SINUS AND VALLECULAE, THEREFORE PLEASURE FEEDS ARE RECOMMENDED AT THIS TIME. RECOMMENDATIONS: 1. PLEASURE FEEDS OF MECHANICAL SOFT/CHOPPED, NECTAR-THICK LIQUIDS, SUPPLEMENTED BY PEG FEEDINGS. 2. COMPENSATORY STRATEGIES: *SEATED AT 90 DEGREE DURING MEAL *ALTERNATE BITES AND SIPS *RE-SWALLOW *SMALL BOLUS SIZE *REMAIN UPRIGHT 30 MINUTES AFTER MEAL 3. SKILLED SPEECH THERAPY IS RECOMMENDED 3-5XWK TARGETING THE AFOREMENTIONED WEAKNESSES. PATIENT EDUCATION: RESULTS AND RECOMMENDATIONS WERE VERBALLY REVIEWED WITH Pt AND . Pt AND VERBALIZED UNDERSTANDING AND COMPLIANCE WITH RECOMMENDATIONS. G-CODES SWALLOWING: [id number] Addendum: 12/17/18 at 1504 by ELADIO NOVAK, [facility] Amended: Links added.
== END | disposition home or self-care (01) ==
LOC: RAH 09:18
PROVIDERS: ATTEND Internal Medicine
DX: R13.10 Dysphagia, unspecified (principal); R63.3 Feeding difficulties
CPT/HCPCS: 74230; 92611

== ENCOUNTER → 2019-02-19 | Outpatient (CLI) | payer OTHER ==
--- NOTE | 2019-02-19 10:30 | NUR ---
MBSS COMPLETED. -S/S OF ASPIRATION. RECOMMEND REGULAR TEXTURE, THIN LIQUIDS; PILLS WHOLE WITH LIQUIDS. PLEASE USE PMV DURING ALL P.O. TRIALS. Addendum: 02/19/19 at 1649 by ELADIO NOVAK, [facility] Amended: Links added.
== END | disposition home or self-care (01) ==
LOC: RAH 10:29
PROVIDERS: ATTEND Internal Medicine Critical Care Medicine
DX: R13.12 Dysphagia, oropharyngeal phase (principal); J44.9 Chronic obstructive pulmonary disease, unspecified; I12.0 Hypertensive chronic kidney disease with stage 5 chronic kidney disease or end stage renal disease; N18.6 End stage renal disease
CPT/HCPCS: 74230; 92611

== ENCOUNTER → 2019-04-08 | Day surgery (SDC) | payer MEDICARE ==
[~2019-04-08] MED LIST changes: +IOHEXOL 350 MG/ML 100ML INFUS..BTL IV ONE; +LIDOCAINE HCL 1% MDV 50ML VIAL ONE
--- NOTE | 2019-04-08 15:00 | NUR ---
PERMACATH REMOVAL After patient was identified, NMJ permacath and site were prepped and draped using sterile technique. Dr. Alves arrived at bedside and time out was performed. Catheter site was localized with 1% lidocaine. Catheter was removed. Catheter tip cut and sent for culture. Manual pressure was applied and hemostasis obtained. No oozing, bruising or hematoma noted. Site was covered with gauze and tegaderm. Report given and site assessed by primary nurse Dorothea Jack RN.
--- NOTE | 2019-04-08 15:35 | NUR ---
RN NOTE Pt brought from [facility] for Permacath removal done by Dr. Alves at bedside in room 216. Procedures tolerated well. Taken to CT and Xray by primary nurse and Elvia, RT taken back to [facility] by EMS, in no distress. Family notified.
== END ==
LOC: CLH 14:30
PROVIDERS: ATTEND Internal Medicine Nephrology
DX: Z45.2 Encounter for adjustment and management of vascular access device (principal); B49 Unspecified mycosis; I12.0 Hypertensive chronic kidney disease with stage 5 chronic kidney disease or end stage renal disease; E11.22 Type 2 diabetes mellitus with diabetic chronic kidney disease; N18.6 End stage renal disease; I25.10 Atherosclerotic heart disease of native coronary artery without angina pectoris; G51.0 Bell's palsy; Z79.82 Long term (current) use of aspirin; Z79.899 Other long term (current) drug therapy; Z79.4 Long term (current) use of insulin; Z95.5 Presence of coronary angioplasty implant and graft; Z82.49 Family history of ischemic heart disease and other diseases of the circulatory system; Z83.3 Family history of diabetes mellitus
CPT/HCPCS: 36589; 71045; 71275; 87070; 94002; J3490; Q9967

== ENCOUNTER → 2019-04-11 | Day surgery (SDC) | payer MEDICARE ==
[~2019-04-11] MED LIST changes: +INSULIN REGULAR, HUMAN 3ML 100 UNIT in SODIUM CHLORIDE 0.9% 99 ML IV PRN; -IOHEXOL 350 MG/ML 100ML INFUS..BTL IV ONE; +NOREPINEPHRINE 4MG/NS 250ML 250 ML IV PRN; +NOREPINEPHRINE BITARTRATE 1 MG/1 ML ML IV ONE; +SODIUM CHLORIDE 0.9% 250 ML IV ONE; +ZOSYN 3.375GM+NS 50ML 50 ML IV ONE
== END ==
LOC: CLH 11:19
PROVIDERS: ATTEND Internal Medicine Critical Care Medicine
DX: I12.0 Hypertensive chronic kidney disease with stage 5 chronic kidney disease or end stage renal disease (principal); E11.22 Type 2 diabetes mellitus with diabetic chronic kidney disease; N18.6 End stage renal disease; I25.10 Atherosclerotic heart disease of native coronary artery without angina pectoris; E78.5 Hyperlipidemia, unspecified; I73.9 Peripheral vascular disease, unspecified; Z99.2 Dependence on renal dialysis; Z79.82 Long term (current) use of aspirin; Z79.899 Other long term (current) drug therapy; Z79.4 Long term (current) use of insulin; Z79.2 Long term (current) use of antibiotics; Z95.5 Presence of coronary angioplasty implant and graft; Z90.49 Acquired absence of other specified parts of digestive tract; Z98.890 Other specified postprocedural states
CPT/HCPCS: 36556; 77001; 82948; 94002; C1752; C1894; J1644 ×2; J2543; J3490 ×2; J7030